=== PATIENT | male | born 1975 | race Caucasian/White ===

== ENCOUNTER 2018-05-15 14:03 | Inpatient (IN) ==
[2018-05-15 14:44] LABS: Basophils # 0.1 K/mcL (0.0-0.2); Basophils % 0.8 %; Eosinophils # 0.3 K/mcL (0.0-0.6); Hematocrit 46.5 % (37.5-50.1); Hemoglobin 15.8 g/dL (12.9-16.9); Immature Granulocytes % 1.4 % (0-4); Lymphocytes # 1.8 K/mcL (0.6-4.6); Lymphocytes % 14.2 %; Mean Corpuscular Hemoglobin 29.4 pg (28.0-33.3); Mean Corpuscular Volume 86.6 fL (83.0-100.0); Mean Platelet Volume 9.9 fL (9.4-12.4); Monocytes % 7.8 %; Neutrophils # 9.6 K/mcL (1.6-8.9); Platelet Count 266 K/mcL (140-400); Red Blood Count 5.37 M/mcL (4.19-5.50); Red Cell Distribution Width 13.5 % (11.5-14.5); Segmented Neutrophils % 73.8 %
[2018-05-15 15:02] LABS: Alanine Aminotransferase 30 Units/L (7-52); Albumin 4.5 g/dL (3.5-5.7); Albumin/Globulin Ratio 1.8 (1.1-2.2); Alkaline Phosphatase 83 Units/L (34-104); Aspartate Amino Transferase 21 Units/L (13-39); BUN/Creatinine Ratio 15 (6-26); Bilirubin,Total 0.4 mg/dL (0.3-1.0); Blood Urea Nitrogen 14 mg/dL (6-20); Calcium 9.5 mg/dL (8.6-10.3); Carbon Dioxide 24 mEq/L (23-29); Chloride 109 mEq/L (98-107); Globulin 2.5 g/dL (2.4-3.5); Glucose 93 mg/dL (70-105); Magnesium 2.5 mg/dL (1.6-2.6); Osmolality,Calculated 292 (280-300); Potassium 4.8 mEq/L (3.5-5.1); Sodium 141 mEq/L (136-145); Troponin I < 0.03 ng/mL (< 0.04); eGFR For Non-African Americans > 60 (> 60)
--- NOTE | 2018-05-15 15:03 | Emergency Department Note ---
Disposition Clinical Impression: Altered mental status Disposition: Admitted As Inpatient Condition: Fair General Adult HPI - General Chief complaint: ED Altered Mental Status Stated complaint: AMS Time Seen by Provider: 05/15/18 14:14 Nursing Notes Reviewed: Yes Vital Signs Reviewed: Yes - History of Present Illness Pain Scale: 0 - Related Data Home Medications Medication Instructions Recorded Confirmed RX: clonazePAM [Klonopin] 1 mg PO DAILY 06/07/16 05/15/18 Citalopram [CeleXA] 20 mg PO DAILY 05/15/18 05/15/18 Dextroamphetamine/Amphetamine 10 mg PO BID 05/15/18 05/15/18 [Adderall 10 mg Tablet] Imipramine HCl [Tofranil] 75 mg PO HS 05/15/18 05/15/18 Perphenazine 4 mg PO HS 05/15/18 05/15/18 Pregabalin [Lyrica] 300 mg PO BID 05/15/18 05/15/18 RX: [place] Carbonate 300 mg PO TID 05/15/18 05/15/18 Allergies Allergy/AdvReac Type Severity Reaction Status Date / Time Penicillins Allergy See Verified 05/05/18 13:22 Comments Past Medical History - Past Medical History Medical history: Reports: TIA, other Surgical history: Reports: orthopedic, other Psychiatric history: Reports: anxiety, ADHD, depression - Social History Smoking Status: Current every day smoker Smokeless Tobacco Status: No Alcohol use: Reports: none Drug use: Reports: none Physical Exam - General General appearance: alert, appears intoxicated Course Vital Signs Temperature 97.5 F L 05/15/18 14:12 Pulse Rate 85 05/15/18 14:12 Respiratory Rate 12 05/15/18 14:12 Blood Pressure 146/90 05/15/18 14:12 O2 Sat by Pulse Oximetry 96 05/15/18 14:12 Temperature 97.5 F L 05/15/18 14:12 Pulse Rate 81 05/15/18 15:39 Respiratory Rate 10 05/15/18 15:39 Blood Pressure 152/99 05/15/18 15:39 O2 Sat by Pulse Oximetry 97 05/15/18 15:39 Oxygen Delivery Oxygen Delivery Room Air Medical Decision Making - [facility] Narrative Medical decision making narrative: Head CT 05/15/18 14:26 IMPRESSION: No acute intracranial abnormality. D/ / Edgardo Steele MD / Edgardo Steele MD Interpreting Provider: Edgardo Steele MD Chest X-Ray 05/15/18 14:28 IMPRESSION: No evidence for acute cardiopulmonary process. D/ / Edgardo Steele MD / Edgardo Steele MD Interpreting Provider: Edgardo Steele MD 1527 hrs.: Labs look good. We will give him 1 small dose of Narcan to see if that changes anything. 1600 hrs.: Patient's drug screen is only positive for cocaine which does not fit the picture he has today. The question is whether this could be a synthetic opiate along with this but he did not respond to Narcan. Rented talk to the about bringing him into the hospital since he is still not waking up completely. She says it would not surprise her if he tried any drug of abuse. She says been a while since he is to start Percocet but she says that she thought even clean but she said with his friends when surprise her if he was doing drugs again. - Lab Data Result diagrams: 05/15/18 14:24 05/15/18 14:24 Lab Results 05/15/18 05/15/18 05/15/18 Range/Units 14:17 14:24 14:24 WBC 13.0 H (4.3-11.1) K/mcL RBC 5.37 (4.19-5.50) M/mcL Hgb 15.8 (12.9-16.9) g/dL Hct 46.5 (37.5-50.1) % MCV 86.6 (83.0-100.0) fL MCH 29.4 (28.0-33.3) pg MCHC 34.0 (31.6-35.5) g/dL RDW 13.5 (11.5-14.5) % Plt Count 266 (140-400) K/mcL MPV 9.9 (9.4-12.4) fL Immature Gran % 1.4 (0-4) % Seg Neutrophils % 73.8 % Lymphocytes % 14.2 % Monocytes % 7.8 % Eosinophils % 2.0 % Basophils % 0.8 % Neutrophils # 9.6 H (1.6-8.9) K/mcL Lymphocytes # 1.8 (0.6-4.6) K/mcL Monocytes # 1.0 (0.0-1.3) K/mcL Eosinophils # 0.3 (0.0-0.6) K/mcL Basophils # 0.1 (0.0-0.2) K/mcL Sodium 141 (136-145) mEq/L Potassium 4.8 (3.5-5.1) mEq/L Chloride 109 H (98-107) mEq/L Carbon Dioxide 24 (23-29) mEq/L BUN 14 (6-20) mg/dL Creatinine 0.96 (0.70-1.30) mg/dL Est GFR ( Amer) > 60 (> 60) Est GFR (Non-Af Amer) > 60 (> 60) BUN/Creatinine Ratio 15 (6-26) Glucose 93 (70-105) mg/dL POC Glucose 89 (70-99) mg/dL Calculated Osmolality 292 (280-300) Calcium 9.5 (8.6-10.3) mg/dL Magnesium 2.5 (1.6-2.6) mg/dL Total Bilirubin 0.4 (0.3-1.0) mg/dL AST 21 (13-39) Units/L ALT 30 (7-52) Units/L Alkaline Phosphatase 83 (34-104) Units/L Troponin I < 0.03 (< 0.04) ng/mL Serum Total Protein 7.0 (6.4-8.9) g/dL Albumin 4.5 (3.5-5.7) g/dL Globulin 2.5 (2.4-3.5) g/dL Albumin/Globulin Ratio 1.8 (1.1-2.2) Urine Color (Yellow) Urine Clarity (Clear) Urine pH (5.0-8.0) pH Units Ur Specific [place] (1.010-1.025) Urine Protein (Neg-Trace) mg/dL Urine Glucose (UA) (Normal) mg/dL Urine Ketones (Negative) mg/dL Urine Blood (Negative) Urine Nitrite (Negative) Urine Bilirubin (Negative) Urine Urobilinogen (Normal) mg/dL Ur Leukocyte Esterase (Negative) Ur Culture Indicated? (NO) Urine Opiates Screen (Atiknx=673) ng/mL Ur Barbiturates Screen (Miduzg=874) ng/mL Ur Phencyclidine Scrn (Cutoff=25) ng/mL Ur Amphetamines Screen (Mfnzmg=1781) ng/mL U Benzodiazepines Scrn (Fvvbtl=963) ng/mL Urine Cocaine Screen (Cutoff= 300) ng/mL U Marijuana (THC) Screen (Cutoff = 50) ng/mL Ur Drug Screen Interp Ethyl Alcohol < 10 (Less than 10) mg/dL 05/15/18 05/15/18 Range/Units 15:19 15:22 WBC (4.3-11.1) K/mcL RBC (4.19-5.50) M/mcL Hgb (12.9-16.9) g/dL Hct (37.5-50.1) % MCV (83.0-100.0) fL MCH (28.0-33.3) pg MCHC (31.6-35.5) g/dL RDW (11.5-14.5) % Plt Count (140-400) K/mcL MPV (9.4-12.4) fL Immature Gran % (0-4) % Seg Neutrophils % % Lymphocytes % % Monocytes % % Eosinophils % % Basophils % % Neutrophils # (1.6-8.9) K/mcL Lymphocytes # (0.6-4.6) K/mcL Monocytes # (0.0-1.3) K/mcL Eosinophils # (0.0-0.6) K/mcL Basophils # (0.0-0.2) K/mcL Sodium (136-145) mEq/L Potassium (3.5-5.1) mEq/L Chloride (98-107) mEq/L Carbon Dioxide (23-29) mEq/L BUN (6-20) mg/dL Creatinine (0.70-1.30) mg/dL Est GFR ( Amer) (> 60) Est GFR (Non-Af Amer) (> 60) BUN/Creatinine Ratio (6-26) Glucose (70-105) mg/dL POC Glucose (70-99) mg/dL Calculated Osmolality (280-300) Calcium (8.6-10.3) mg/dL Magnesium (1.6-2.6) mg/dL Total Bilirubin (0.3-1.0) mg/dL AST (13-39) Units/L ALT (7-52) Units/L Alkaline Phosphatase (34-104) Units/L Troponin I (< 0.04) ng/mL Serum Total Protein (6.4-8.9) g/dL Albumin (3.5-5.7) g/dL Globulin (2.4-3.5) g/dL Albumin/Globulin Ratio (1.1-2.2) Urine Color Yellow (Yellow) Urine Clarity Clear (Clear) Urine pH 5.0 (5.0-8.0) pH Units Ur Specific [place] 1.015 (1.010-1.025) Urine Protein Negative (Neg-Trace) mg/dL Urine Glucose (UA) Normal (Normal) mg/dL Urine Ketones Negative (Negative) mg/dL Urine Blood Negative (Negative) Urine Nitrite Negative (Negative) Urine Bilirubin Negative (Negative) Urine Urobilinogen Normal (Normal) mg/dL Ur Leukocyte Esterase Negative (Negative) Ur Culture Indicated? NO (NO) Urine Opiates Screen Negative (Yblvce=071) ng/mL Ur Barbiturates Screen Negative (Ekmfzk=556) ng/mL Ur Phencyclidine Scrn Negative (Cutoff=25) ng/mL Ur Amphetamines Screen Negative (Utksal=8549) ng/mL U Benzodiazepines Scrn Negative (Qctigl=706) ng/mL Urine Cocaine Screen Positive H (Cutoff= 300) ng/mL U Marijuana (THC) Screen Negative (Cutoff = 50) ng/mL Ur Drug Screen Interp See Below Ethyl Alcohol (Less than 10) mg/dL Attestation Statement - Attestation Attestation: This documentation is done with the assistance of Dragon dictation. Despite efforts made to ensure accuracy, there may be inaccuracies in finishing department supervisor or spelling and typographical errors. I examined this patient and my medical decision-making was reviewed with the Resident Physician. I agree with the documented findings, disposition and treatment plan as described except to the extent set forth below. Patient seen and evaluated today by Dr. Jain and myself, I agree with his evaluation management plan supervise care the patient's stay. Patient has a history of IV drug abuse went to work disappeared for a while came back was altered so they came in here to be seen. He says he took something but does not know what it is. He denies any fevers or chills he is not alert to time or placein the hospital. His but other that does not. He has been uncooperative here but is not febrile not toxic. Renagel workup on him and most likely will need admission.
[2018-05-15] MEDS ORDERED: Naloxone 0.4 MG/ML INJ IVP STA ×2 (15:27→20:02)
[2018-05-15 15:28] LABS: Bilirubin,Urine Negative (Negative); Blood,Urine Negative (Negative); Clarity,Urine Clear (Clear); Color,Urine Yellow (Yellow); Glucose,Urine (UA) Normal (Normal); Ketones,Urine Negative (Negative); Leukocyte Esterase,Urine Negative (Negative); Nitrite,Urine Negative (Negative); Protein,Urine Negative (Neg-Trace); Specific Gravity,Urine 1.015 (1.010-1.025); Urobilinogen,Urine Normal (Normal)
--- NOTE | 2018-05-15 15:31 | Emergency Department Note ---
Disposition Clinical Impression: Altered mental status Qualifiers: Altered mental status type: somnolence Qualified Code(s): R40.0 - Somnolence Disposition: Admitted As Inpatient Condition: Fair Referrals: Mary Ho MD [Primary Care Provider] - Forms: ED Satisfaction Letter, Work/School Release Time of Disposition: 17:08 Altered Mental Status HPI - General Chief Complaint: ED Altered Mental Status Stated Complaint: AMS Time Seen by Provider: 05/15/18 14:14 Source: family Mode of arrival: wheelchair Limitations: altered mental status Nursing Notes Reviewed: Yes Vital Signs Reviewed: Yes - History of Present Illness HPI Narrative: 42-year-old male presents to the emergency department for altered mental status. Patient does have history of chronic back pain does have a baclofen pump said that he was normal today he went over to a friend's house at work who does have history of possible drug use and then came back as he was normally when said on the couch and since then he has been talking out of his mind where he is saying that he is going to hell and he is going to . He did not admit to taking anything when I asked him if he took any meds he said yes I asked him what he said nothing. He has abused Percocets in the past that was approximately 3-4 years ago he has not done any other illicit drug use according to . He is not having any other pain or further get further heart difficult to get further history from the patient at this time according to there is been no other preceding illnesses otherwise. He had his baclofen pump dose inc reased approximately one week ago there is been no problems since that change. - Related Data Home Medications Medication Instructions Recorded Confirmed clonazePAM [Klonopin] 1 mg PO BID 06/07/16 05/05/18 Citalopram [CeleXA] 20 mg PO DAILY 05/15/18 05/15/18 Dextroamphetamine/Amphetamine 10 mg PO BID 05/15/18 05/15/18 [Adderall 10 mg Tablet] Imipramine HCl [Tofranil] 75 mg PO HS 05/15/18 05/15/18 [place] Carbonate 300 mg PO TID 05/15/18 05/15/18 Perphenazine 4 mg PO HS 05/15/18 05/15/18 Pregabalin [Lyrica] 300 mg PO BID 05/15/18 05/15/18 Allergies Allergy/AdvReac Type Severity Reaction Status Date / Time Penicillins Allergy See Verified 05/05/18 13:22 Comments Limitations: ROS unobtainable due to patients medical condition Past Medical History - Past Medical History Attestation: Yes The following information was validated with the patient. Source: patient Medical history: Reports: TIA, other Surgical history: Reports: orthopedic, other Psychiatric history: Reports: anxiety, ADHD, depression - Social History Smoking Status: Current every day smoker Smokeless Tobacco Status: No Alcohol use: Reports: none Drug use: Reports: none Physical Exam - General Limitations: altered mental status General appearance: alert, appears intoxicated - Head Head exam: atraumatic, normocephalic, normal inspection - Eye Eye exam: Present: normal appearance, PERRL, EOMI, miosis - ENT ENT exam: normal exam, normal oropharynx, mucous membranes moist - Neck Neck exam: Present: normal inspection, full ROM, trachea midline - Chest Chest inspection: Present: normal inspection, symmetric chest wall rise - Respiratory Respiratory exam: Present: normal lung sounds bilaterally - Cardiovascular Cardiovascular exam: Present: regular rate, normal rhythm, normal heart sounds - Abdominal Exam Abdominal exam: Present: soft, Non-Tender, normal bowel sounds. Absent: tenderness, distention, guarding, rebound, rigidity - Back Exam Back exam: Present: normal inspection, full ROM. Absent: tenderness, CVA tenderness (R), CVA tenderness (L) - Neurological Exam Neurological exam: Present: alert, oriented X3 - Expanded Neurological Exam Patient oriented to: Present: person, place, time Speech: Present: fluid speech Cranial nerves: EOM function (II, III, IV, ): Normal, facial sensation (V): Normal, facial palsy (VII): Normal, spinal accessory function (XI): Normal, tongue deviation (XII): Normal Motor strength - LUE: 4/5 Motor strength - RUE: 4/5 Motor strength - LLE: 4/5 Motor strength - RLE: 4/5 Upper motor neuron exam: bhavin neglect: Absent bilaterally, pronator drift: Absent bilaterally Sensory exam upper extremity: light touch: Normal Sensory exam lower extremity: light touch: Normal Coma Scale Eye Opening: Spontaneous Coma Scale Motor Response: Obeys Commands Coma Scale Verbal Response: Oriented Coma Scale Total: 15 - Skin Skin exam: Present: warm, dry, intact, normal color Course Course Narrative: Patient altered this time I did do an NIH scale on him and H was 0 he was able answer all questions and follow commands when he was sternal rubs and able to wake up. We have basic labs including CBC, BMP as well as urine and urine drug screen. We will do chest x-ray, CT head. We will see how patient response to this. Disposition pending results. - Reevaluation(s) Reevaluation #1: Patient is still somnolent but is responsive to sternal rub. I will give patient 0.4 mg of Narcan to see how he responds. Time: 15:37 Reevaluation #2: Narcan did not make any changes to the patient's mental status. He is still protecting his airway is breathing at 12 respirations per minute has good waveform and still is good oxygen saturation he did cocaine came back positive s aid she does not know what that is from. After to speak with patient more she is wondering if this is the Phenibut HCL he is been taking said this happened approximately one year ago similar episode but she did not put together until now. This is a benzodiazepine derivative and could be causing similar symptoms but will not show up positive on drug screen. Patient will be admitted for further evaluation Time: 16:13 Vital Signs Temperature 97.5 F L 05/15/18 14:12 Pulse Rate 85 05/15/18 14:12 Respiratory Rate 12 05/15/18 14:12 Blood Pressure 146/90 05/15/18 14:12 O2 Sat by Pulse Oximetry 96 05/15/18 14:12 Temperature 97.5 F L 05/15/18 14:12 Pulse Rate 81 05/15/18 15:39 Respiratory Rate 10 05/15/18 15:39 Blood Pressure 152/99 05/15/18 15:39 O2 Sat by Pulse Oximetry 97 05/15/18 15:39 Oxygen Delivery Oxygen Delivery Room Air Altered Mental Status - MDM Narrative Medical decision making narrative: 42-year-old male presented to the [facility] department with altered mental status. When first checked him he had no focal neurological deficits on exam there was no stroke alert called they believe it is possibly was a drug ingestion. Urine drug screen was positive for cocaine but is not acting right cocaine at this time. He is not tachycardic not any chest pain. He is arousable after sternal rubbing his protecting his airway and vital signs otherwise are stable he is not any oxygen and oxygen saturations are with 96%. Labs all came back without within normal limits CT head was normal chest x-ray also was normal EKG had no acute findings. Most likely is due to an intoxication speaking with more she believes it is the Phenibut he is taking as this is a gap or receptor ask similar to baclofen as well as a benzo but is not positive for benzos. He could is be overdosing as patient does have a baclofen pump. I did recommend that he stops taking this that could be what is causing all this. Due to patient's continued somnolence and altered mental status does not for T and home's will admit to the hospitalist. I spoke with possible Dr. Recinos who agreed to admit the patient to their service. Patient is admitted in stable condition. Head CT 05/15/18 14:26 IMPRESSION: No acute intracranial abnormality. D/ / Edgardo Steele MD / Edgardo Steele MD Interpreting Provider: Edgardo Steele MD Chest X-Ray 05/15/18 14:28 IMPRESSION: No evidence for acute cardiopulmonary process. D/ / Edgardo Steele MD / Edgardo Steele MD Interpreting Provider: Edgardo Steele MD - Medical Records Medical records reviewed: Yes I reviewed the patient's medical records. - Lab Data Lab results reviewed: Yes I reviewed the patient's lab results. Result diagrams: 05/15/18 14:24 05/15/18 14:24 Lab Results 05/15/18 05/15/18 05/15/18 Range/Units 14:17 14:24 14:24 WBC 13.0 H (4.3-11.1) K/mcL RBC 5.37 (4.19-5.50) M/mcL Hgb 15.8 (12.9-16.9) g/dL Hct 46.5 (37.5-50.1) % MCV 86.6 (83.0-100.0) fL MCH 29.4 (28.0-33.3) pg MCHC 34.0 (31.6-35.5) g/dL RDW 13.5 (11.5-14.5) % Plt Count 266 (140-400) K/mcL MPV 9.9 (9.4-12.4) fL Immature Gran % 1.4 (0-4) % Seg Neutrophils % 73.8 % Lymphocytes % 14.2 % Monocytes % 7.8 % Eosinophils % 2.0 % Basophils % 0.8 % Neutrophils # 9.6 H (1.6-8.9) K/mcL Lymphocytes # 1.8 (0.6-4.6) K/mcL Monocytes # 1.0 (0.0-1.3) K/mcL Eosinophils # 0.3 (0.0-0.6) K/mcL Basophils # 0.1 (0.0-0.2) K/mcL Sodium 141 (136-145) mEq/L Potassium 4.8 (3.5-5.1) mEq/L Chloride 109 H (98-107) mEq/L Carbon Dioxide 24 (23-29) mEq/L BUN 14 (6-20) mg/dL Creatinine 0.96 (0.70-1.30) mg/dL Est GFR ( Amer) > 60 (> 60) Est GFR (Non-Af Amer) > 60 (> 60) BUN/Creatinine Ratio 15 (6-26) Glucose 93 (70-105) mg/dL POC Glucose 89 (70-99) mg/dL Calculated Osmolality 292 (280-300) Calcium 9.5 (8.6-10.3) mg/dL Magnesium 2.5 (1.6-2.6) mg/dL Total Bilirubin 0.4 (0.3-1.0) mg/dL AST 21 (13-39) Units/L ALT 30 (7-52) Units/L Alkaline Phosphatase 83 (34-104) Units/L Troponin I < 0.03 (< 0.04) ng/mL Serum Total Protein 7.0 (6.4-8.9) g/dL Albumin 4.5 (3.5-5.7) g/dL Globulin 2.5 (2.4-3.5) g/dL Albumin/Globulin Ratio 1.8 (1.1-2.2) Urine Color (Yellow) Urine Clarity (Clear) Urine pH (5.0-8.0) pH Units Ur Specific [place] (1.010-1.025) Urine Protein (Neg-Trace) mg/dL Urine Glucose (UA) (Normal) mg/dL Urine Ketones (Negative) mg/dL Urine Blood (Negative) Urine Nitrite (Negative) Urine Bilirubin (Negative) Urine Urobilinogen (Normal) mg/dL Ur Leukocyte Esterase (Negative) Ur Culture Indicated? (NO) Urine Opiates Screen (Wsahuv=893) ng/mL Ur Barbiturates Screen (Ngshxv=842) ng/mL Ur Phencyclidine Scrn (Cutoff=25) ng/mL Ur Amphetamines Screen (Wkntpr=0424) ng/mL U Benzodiazepines Scrn (Yzdksb=721) ng/mL Urine Cocaine Screen (Cutoff= 300) ng/mL U Marijuana (THC) Screen (Cutoff = 50) ng/mL Ur Drug Screen Interp Ethyl Alcohol < 10 (Less than 10) mg/dL 05/15/18 05/15/18 Range/Units 15:19 15:22 WBC (4.3-11.1) K/mcL RBC (4.19-5.50) M/mcL Hgb (12.9-16.9) g/dL Hct (37.5-50.1) % MCV (83.0-100.0) fL MCH (28.0-33.3) pg MCHC (31.6-35.5) g/dL RDW (11.5-14.5) % Plt Count (140-400) K/mcL MPV (9.4-12.4) fL Immature Gran % (0-4) % Seg Neutrophils % % Lymphocytes % % Monocytes % % Eosinophils % % Basophils % % Neutrophils # (1.6-8.9) K/mcL Lymphocytes # (0.6-4.6) K/mcL Monocytes # (0.0-1.3) K/mcL Eosinophils # (0.0-0.6) K/mcL Basophils # (0.0-0.2) K/mcL Sodium (136-145) mEq/L Potassium (3.5-5.1) mEq/L Chloride (98-107) mEq/L Carbon Dioxide (23-29) mEq/L BUN (6-20) mg/dL Creatinine (0.70-1.30) mg/dL Est GFR ( Amer) (> 60) Est GFR (Non-Af Amer) (> 60) BUN/Creatinine Ratio (6-26) Glucose (70-105) mg/dL POC Glucose (70-99) mg/dL Calculated Osmolality (280-300) Calcium (8.6-10.3) mg/dL Magnesium (1.6-2.6) mg/dL Total Bilirubin (0.3-1.0) mg/dL AST (13-39) Units/L ALT (7-52) Units/L Alkaline Phosphatase (34-104) Units/L Troponin I (< 0.04) ng/mL Serum Total Protein (6.4-8.9) g/dL Albumin (3.5-5.7) g/dL Globulin (2.4-3.5) g/dL Albumin/Globulin Ratio (1.1-2.2) Urine Color Yellow (Yellow) Urine Clarity Clear (Clear) Urine pH 5.0 (5.0-8.0) pH Units Ur Specific [place] 1.015 (1.010-1.025) Urine Protein Negative (Neg-Trace) mg/dL Urine Glucose (UA) Normal (Normal) mg/dL Urine Ketones Negative (Negative) mg/dL Urine Blood Negative (Negative) Urine Nitrite Negative (Negative) Urine Bilirubin Negative (Negative) Urine Urobilinogen Normal (Normal) mg/dL Ur Leukocyte Esterase Negative (Negative) Ur Culture Indicated? NO (NO) Urine Opiates Screen Negative (Hejvmt=031) ng/mL Ur Barbiturates Screen Negative (Hstzxs=614) ng/mL Ur Phencyclidine Scrn Negative (Cutoff=25) ng/mL Ur Amphetamines Screen Negative (Jukild=2190) ng/mL U Benzodiazepines Scrn Negative (Ormpsk=717) ng/mL Urine Cocaine Screen Positive H (Cutoff= 300) ng/mL U Marijuana (THC) Screen Negative (Cutoff = 50) ng/mL Ur Drug Screen Interp See Below Ethyl Alcohol (Less than 10) mg/dL - Radiology Data Radiology results reviewed: Yes I reviewed the patient's radiology results. - EKG Data EKG attestation: Yes I reviewed and interpreted this EKG. EKG results narrative: EKG done at 14 review by myself and the attending shows sinus rhythm rate of 82, IA able 164, QRS 92, QTC 437. No acute ST changes no acute T-wave changes no signs of ischemia. No hypertrophy, heart strain, heart block. No WPW/Brugada/HOCM. EKG unchanged when compared with old one done 02/18/17 TPA Checklist - LKW: 3-4.5 hrs Add. Warnings/Precautions Patient/family understanding: The patient/family members have been counseled and understood the risk, benefit, and alternatives of treatment.
[2018-05-15 15:56] LABS: Amphetamine Screen,Urine Negative ng/mL (Cutoff=1000); Barbiturate Screen,Urine Negative ng/mL (Cutoff=200); Benzodiazepines Screen,Urine Negative ng/mL (Cutoff=200); Cannabinoid Screen,Urine Negative ng/mL (Cutoff = 50); Cocaine Screen,Urine Positive ng/mL (Cutoff= 300); Opiate Screen,Urine Negative ng/mL (Cutoff=300); Phencyclidine Screen,Urine Negative ng/mL (Cutoff=25)
[2018-05-15 15:58] LABS: Ethanol < 10 mg/dL (Less than 10)
[2018-05-15] MEDS ORDERED: Naloxone 0.4 MG/ML INJ ONE (20:00)
[2018-05-15 20:24] LABS: ABG Base Excess 2 mEq/L (-2 to 3); ABG HCO3 27 mEq/L (21-27); ABG Oxygen Saturation 96 % (95-98); ABG PCO2 43 mmHg (35-45); ABG PO2 79 mmHg (85-104); ABG TCO2 28 mEq/L (20-26)
[2018-05-15] MEDS ORDERED: Naloxone 0.4 MG/ML INJ IVP PRN (20:58)
[2018-05-15] MEDS ORDERED: 0.9 % Sodium Chloride 1,000 ML IVC SCH (21:15)
--- NOTE | 2018-05-15 21:30 | Internal Med History&Physical ---
Date of Encounter: 05/15/18 Time of Encounter: 20:30 Internal Medicine - H&P: HPI Chief complaint: Altered mental status Admitted From: Home Plans for Post Hospital Care: Transfer Psych Facility History of present illness: The patient is a 42-year-old male. He has had long-standing history of multiple psychiatric disorders. He has been suffering from low back pain for several years; got baclofen pump inserted in November 2017. He has had a history of polysubstance abuse. We found him to be positive for cocaine in urine drug screen. I got this patient unresponsive. See notes from the emergency room physician about the events preceding that event. The patient takes multiple psychiatric medications. They include Klonopin, Celexa, Adderall, Tofranil, lithium carbonate, perphenazine and Lyrica. The patient takes sdto-eib-pvricaw Phenibut. It may be toxic for him. It may cause undesirable interactions with his psychiatric medications. PAST MEDICAL HX: He has had chronic low back pain. Baclofen pump was inserted in November last year. He has had multiple psychiatric problems including bipolar disorder he. PAST FAMILY HX: Not obtainable from the patient. PAST SOCIAL HX: See belowfrom his . REVIEW OF SYSTEMS: Not obtainable from the patient. PHYSICAL EXAM: The patient is unresponsive to verbal stimuli. Skin: Free of rash and discoloration. Eyes: Sclera is white. There is no discharge from eyes. ENMT: Oral/pharyngeal mucosa is normal in appearance. There is no discharge from nose or ears. Respiratory: Normal breath sounds with no crackles and wheezes bilaterally. His respiratory rate is about 10. His respiratory pattern is of Yrn-Tiwari. CV: Heart is regular with no gallop or murmur. GI: Abdomen is flat and soft with no palpable mass or visceromegaly. : There is no tenderness in patient's flanks bilaterally. Neuro exam: The patient is unresponsive to verbal stimuli. He seems to have good muscle tone in all 4 extremities. His pupils are somewhat narrow and rounded. They respond to light appropriately. ADDITIONAL DATA: CT of head shows normal findings. Chest x-ray does not show any acute cardiopulmonary process. CBC shows hemoglobin of 15.8 with WBC of 13.0 thousand and normal platelet count. His ABG shows pH of 7.40 with PCO2 of 43, PO2 of 79 and bicarb of 28. It was done on room area. BMP and hepatic panel are normal. Troponin is normal. Urine drug screen is positive for cocaine. Ethyl alcohol level is below 10. A/P: Altered mental status likely secondary to taking outr-eko-bnemqvx Phenibut. He may be taking some other drugs. He may have overdosed his psychiatric medications (including lithium). We will offer him BiPAP treatments. We will protect his airways the best possible way. He may need to be ventilated. Multiple psychiatric problems. Including bipolar disorder. We cannot rule out suicidal attempt for this patient. We will ask psychiatry, when he is medically stable. Past Med Surg Social Fam HX - Past Medical History Medical history: TIA, other Additional medical history: depression,adhd,rsd,lumbarSTENOSIS. FAILED BACK SYNDROME. 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 CHRONIC LOW BACK PAIN. SLEEP APNEA. TIA Psychiatric history: anxiety, ADHD, depression - Past Surgical History Surgical History: orthopedic, other Additional surgical history: pain pump in back - Social History Smoking Status: Current every day smoker Smokeless Tobacco Status: No Alcohol use: none Drug use: none - Family History Father Hx Family Endocrine Disorder: Yes Internal Medicine - H&P: Meds clonazePAM [Klonopin] 1 mg PO DAILY 06/07/16 [History] Citalopram [CeleXA] 20 mg PO DAILY 05/15/18 [History] Dextroamphetamine/Amphetamine [Adderall 10 mg Tablet] 10 mg PO BID 05/15/18 [History] Imipramine HCl [Tofranil] 75 mg PO HS 05/15/18 [History] [place] Carbonate 300 mg PO TID 05/15/18 [History] Perphenazine 4 mg PO HS 05/15/18 [History] Pregabalin [Lyrica] 300 mg PO BID 05/15/18 [History] Allergy/AdvReac Type Severity Reaction Status Date / Time Penicillins Allergy See Verified 05/05/18 13:22 Comments - Constitutional Vitals: Temp Pulse Resp BP Pulse Ox 97.9 F 80 11 126/93 95 05/15/18 19:04 05/15/18 19:04 05/15/18 19:04 05/15/18 19:04 05/15/18 19:04 General appearance: Present: A&O X 0, no acute distress Exam: xx Internal Med - H&P Results - Labs CBC & Chem 7: 05/15/18 14:24 05/15/18 14:24 Labs: Short CBC 05/15/18 Range/Units 14:24 WBC 13.0 H (4.3-11.1) K/mcL Hgb 15.8 (12.9-16.9) g/dL Hct 46.5 (37.5-50.1) % Plt Count 266 (140-400) K/mcL Neutrophils # 9.6 H (1.6-8.9) K/mcL BMP 05/15/18 14:24 Sodium 141 Potassium 4.8 Chloride 109 H Carbon Dioxide 24 BUN 14 Creatinine 0.96 Glucose 93 Calcium 9.5 Cardiac Enzymes 05/15/18 Range/Units 14:24 Troponin I < 0.03 (< 0.04) ng/mL Liver Function 05/15/18 Range/Units 14:24 Total Bilirubin 0.4 (0.3-1.0) mg/dL AST 21 (13-39) Units/L ALT 30 (7-52) Units/L Alkaline Phosphatase 83 (34-104) Units/L Albumin 4.5 (3.5-5.7) g/dL Urine 05/15/18 Range/Units 15:22 Urine Color Yellow (Yellow) Urine Clarity Clear (Clear) Urine pH 5.0 (5.0-8.0) pH Units Ur Specific [place] 1.015 (1.010-1.025) Urine Protein Negative (Neg-Trace) mg/dL Urine Glucose (UA) Normal (Normal) mg/dL - ABG Interpretation ABG results: 05/15/18 20:20 ABG pH 7.40 ABG pCO2 43 ABG pO2 79 L ABG HCO3 27 ABG Total CO2 28 H ABG O2 Saturation 96 ABG Base Excess 2 - Impressions ITS Impressions Head CT 05/15/18 14:26 IMPRESSION: No acute intracranial abnormality. D/ / Edgardo Steele MD / Edgardo Steele MD Interpreting Provider: Edgardo Steele MD Chest X-Ray 05/15/18 14:28 IMPRESSION: No evidence for acute cardiopulmonary process. D/ / Edgardo Steele MD / Edgardo Steele MD Interpreting Provider: Edgardo Steele MD Chest X-Ray 05/15/18 20:07 IMPRESSION: No acute process. D/ / Adrien Romero MD / Adrien Romero MD Interpreting Provider: Adrien Romero MD - Assessment and plan (1) Altered mental status Current Visit: Yes Status: Acute Qualifiers: Altered mental status type: unspecified Qualified Code(s): R41.82 - Altered mental status, unspecified (2) Drug overdose Current Visit: Yes Status: Acute Qualifiers: Encounter type: initial encounter Injury intent: undetermined intent Qualified Code(s): T50.904A - Poisoning by unspecified drugs, medicaments and biological substances, undetermined, initial encounter (3) Chronic low back pain Current Visit: Yes Status: Acute Qualifiers: Back pain laterality: unspecified Sciatica presence: unspecified whether sciatica present Qualified Code(s): M54.5 - Low back pain; G89.29 - Other chronic pain (4) Bipolar disorder Current Visit: Yes Status: Acute Qualifiers: Active/Remission status: in remission of unspecified degree Qualified Code(s): F31.70 - Bipolar disorder, currently in remission, most recent episode unspecified - Time Spent With Patient Total time spent is greater than 50% in coordination of care (as documented) at patient's floor/unit and/or counseling patient:
--- NOTE | 2018-05-15 22:44 | Event Note ---
Addendum entered and electronically signed by Cole Collins CNP 05/15/18 23:46: Alerted by pts. nurse at 22:40 that the pts. breathing had changed and was more erratic. Respirations still 7-8. Went to see pt. immediately who was still somnolent and was having erratic breaths and now having jerking muscle movements. RT called to place BiPAP immediately. Loera catheter inserted for immobility d/t trauma or sx and initial urine output was 1350. Loera was clamped at 700 ml to avoid bladder spasms and then residual emptied approx 45 minutes later. Pt. became agitated during Loera placement so 4-point soft restraints ordered. Seizure precautions ordered as well as extended Neurological assessments. Researched Phentibut HCL further online and found that Baclofen is the only recommended agent to assist w/withdrawal according to [facility]. Baclofen used primarily to address muscle spams/rigidity/clonus and is typically used with a tapering dose of Phentibut. After pt. placed on BiPAP, muscle rigidity improved. 0.9 fluids running @ 125 mls/hr. Discussed pt. w/Dr. Morgan who came to see the pt. Discussed the research found regarding Phentibut HCL withdrawal w/Dr. Morgan. Plan is to continue to monitor and will consider adding Baclofen PRN for pts. sx. Nurse instructed to inform me immediately of any changes in pts. condition/status. Original Note: Date of Encounter: 05/15/18 Time of Encounter: 19:56 Alerted by pts. nurse Concha Caba that the pt. was having low respirations of 8 to 9. Immediately went to see pt. who was laying in bed snoring. present. Informed pts. that tox screen was positive for cocaine. She stated that the pt. didn't use cocaine. She reported that the pt. uses/buys a substance online called Phenibut HCL 125. It is a white powder. Researched the substance online. It is an anxiolytic that is a derivative of Rudi that originated in [place] and has been abused in [place] for years. Pts. reported that the pt. was on Gabapentin previously and dose was decreased greatly. VS: 97.9F temp, HR 80, RR 10, BP 126/93, SpO2 95% on RA. Pt. was exhibiting apneic breathing on exam and had rhonchi present. Concern for possible aspiration d/t somnolence. Repeat 1V CXR ordered which showed no acute process. Narcan ordered which pt. did not respond to. I called Poison Control and spoke w/CONCHA Kenney regarding the situation. Poison Control not familiar w/substance so educated her on the source and use of the drug. Poison Control recommended protecting the pts. airway and supportive care which were already being done. NPO. Elevated HOB and continuous aspiration precautions. Stat ABG ordered which was WNL. RT alerted to have BiPAP available since reported that pt. had to be previously intubated d/t same situation previously. Discussed ideation of the pt. with his who stated she didn't feel he was trying to harm himself. I reminded the pts. that she was unaware of his cocaine use. 0.9 IV fluids started at 125 ml/hr. 1A consult ordered and confirmed d/t unknown intent/ideation of the pt. at the time of OD. Nurse instructed to monitor pt. very closely and notify me immediately of any adverse changes, changes in respiratory status/decline, or psychiatric issues.
[2018-05-15] MEDS: 0.9 % Sodium Chloride 1,000 ML IVC SCH (22:45)
[2018-05-16 05:01] LABS: ABG Base Excess 2 mEq/L (-2 to 3); ABG HCO3 28 mEq/L (21-27); ABG Oxygen Saturation 98 % (95-98); ABG PCO2 49 mmHg (35-45); ABG PH 7.36 pH Units (7.32-7.45); ABG PO2 103 mmHg (85-104); ABG TCO2 29 mEq/L (20-26); Blood Gas PEEP 6 cm H2O
[2018-05-16 05:56] LABS: Basophils # 0.1 K/mcL (0.0-0.2); Basophils % 0.8 %; Eosinophils # 0.3 K/mcL (0.0-0.6); Eosinophils % 2.6 %; Hematocrit 45.5 % (37.5-50.1); Hemoglobin 15.3 g/dL (12.9-16.9); Immature Granulocytes % 1.2 % (0-4); Lymphocytes # 2.2 K/mcL (0.6-4.6); Lymphocytes % 19.1 %; Mean Corpuscular HGB Conc 33.6 g/dL (31.6-35.5); Mean Corpuscular Hemoglobin 29.8 pg (28.0-33.3); Mean Corpuscular Volume 88.5 fL (83.0-100.0); Mean Platelet Volume 9.8 fL (9.4-12.4); Monocytes % 8.2 %; Neutrophils # 7.9 K/mcL (1.6-8.9); Platelet Count 268 K/mcL (140-400); Red Blood Count 5.14 M/mcL (4.19-5.50); Red Cell Distribution Width 13.9 % (11.5-14.5); Segmented Neutrophils % 68.1 %
[2018-05-16 06:18] LABS: BUN/Creatinine Ratio 13 (6-26); Blood Urea Nitrogen 13 mg/dL (6-20); Calcium 9.5 mg/dL (8.6-10.3); Carbon Dioxide 29 mEq/L (23-29); Chloride 110 mEq/L (98-107); Glucose 116 mg/dL (70-105); Osmolality,Calculated 297 (280-300); Potassium 4.7 mEq/L (3.5-5.1); Sodium 143 mEq/L (136-145); eGFR For Non-African Americans > 60 (> 60)
[2018-05-16] MEDS: 0.9 % Sodium Chloride 1,000 ML IVC SCH ×2 (06:49→14:14)
--- NOTE | 2018-05-16 08:41 | Internal Med Progress Note ---
<Seven Mahoney - Last Filed: 05/16/18 11:10> Hospitalist Progress Note - Encounter Date of Encounter: 05/16/18 Time of Encounter: 08:39 - Subjective Interval History: I spoke with the nurse who stated patient has improved in arousal and breathing, stating that he will now respond to verbal stimuli. I spoke with the patient who responded to my questions. I asked if he had taken any substances we did not know about. He said no. I asked if he was attempting to hurt himself. He said no. I asked if he took extra or less medication. He said know. When I asked location, year, president, his replies were unintelligible, 2007, and [place], respectively. I informed him that he is still very unstable and required additional monitoring. He became agitated, stating he was fine, and his speech became further unintelligible, as he strained to get out of his restraints. - Exam Vitals: Temp Pulse Resp BP Pulse Ox 98.5 F 79 13 125/83 92 05/16/18 06:51 05/16/18 06:51 05/16/18 06:51 05/16/18 06:51 05/16/18 06:51 Exam: Patient on BiPAP, resting comfortably NO acute distress, only becoming agitated with certain conversations Responds to some questions, some answers inappropriate, some speech unintelligible Pupils dilated, equal and reactive to light, EOMI Heart in regular rate and rhythm, no murmur or gallop Lungs clear to auscultation, no wheeze or rhonchi auscultated Abdomen obese, soft and non-tender, normal bowel sounds noted Moves all extremities, in 3 point restraints, no focal deficits noted Skin warm and diaphoretic - Assessment and Plan (1) Altered mental status Current Visit: Yes Status: Acute Assessment and Plan: Patient presented secondary to altered mental status Differential includes medications and metabolic encephalopathy Medications/drugs far more likely, labs/vitals/PMHx not supportive of metabolic encephalopathy Patient is on multiple prescribed medications for psychiatric illness and morphine pump for chronic low back pain He also takes Phenibut which is a MIRZA analogue available on the internet On presentation patient was unresponsive with low respiratory drive, indicative of depressant intoxication Poison control was called who recommended airway protection and supportive care Patient was started on BiPAP and supportive care Overnight his clinical condition improved and he was responding to verbal stimulus this morning He was breathing normally and came off BiPAP and was able to support his airway He answered some questions but many answers were inappropriate and some answers were unintelligible At this point I suspect overdose of unknown substance He is improving with supportive care Plan Continue supportive care, fluids CIWA protocol for agitation and to cover any withdrawal Once patient is oriented restraints can come off and diet can stop Will continue to monitor clinical and mental status for changes (2) Drug overdose Current Visit: Yes Status: Acute Assessment and Plan: Plan as seen above (3) Chronic low back pain Current Visit: Yes Status: Chronic Assessment and Plan: Patient is on morphine pump for chronic back pain No intervention at this time (4) Bipolar disorder Current Visit: Yes Status: Chronic Assessment and Plan: Chronic, will restart home meds once clinically stable (5) ADHD Current Visit: Yes Status: Chronic Assessment and Plan: Chronic, will restart home meds once clinically stable (6) Anxiety Current Visit: Yes Status: Chronic Assessment and Plan: Chronic, will restart home meds once clinically stable (7) Depression Current Visit: Yes Status: Chronic Assessment and Plan: Chronic, will restart home meds once clinically stable DVT Prophylaxis: subcutaneous heparin - Time Spent with Patient Total time spent is greater than 50% in coordination of care (as documented) at patient's floor/unit and/or counseling patient: Internal Medicine: Result - Labs CBC & Chem 7: 05/16/18 04:49 05/16/18 04:49 Labs: Short CBC 05/15/18 05/16/18 Range/Units 14:24 04:49 WBC 13.0 H 11.7 H (4.3-11.1) K/mcL Hgb 15.8 15.3 (12.9-16.9) g/dL Hct 46.5 45.5 (37.5-50.1) % Plt Count 266 268 (140-400) K/mcL Neutrophils # 9.6 H 7.9 (1.6-8.9) K/mcL BMP 05/15/18 05/16/18 14:24 04:49 Sodium 141 143 Potassium 4.8 4.7 Chloride 109 H 110 H Carbon Dioxide 24 29 BUN 14 13 Creatinine 0.96 1.02 Glucose 93 116 H Calcium 9.5 9.5 Cardiac Enzymes 05/15/18 Range/Units 14:24 Troponin I < 0.03 (< 0.04) ng/mL Liver Function 05/15/18 Range/Units 14:24 Total Bilirubin 0.4 (0.3-1.0) mg/dL AST 21 (13-39) Units/L ALT 30 (7-52) Units/L Alkaline Phosphatase 83 (34-104) Units/L Albumin 4.5 (3.5-5.7) g/dL Urine 05/15/18 Range/Units 15:22 Urine Color Yellow (Yellow) Urine Clarity Clear (Clear) Urine pH 5.0 (5.0-8.0) pH Units Ur Specific [place] 1.015 (1.010-1.025) Urine Protein Negative (Neg-Trace) mg/dL Urine Glucose (UA) Normal (Normal) mg/dL - ABG Interpretation ABG results: ABG ABG pH 7.36 pH Units (7.32-7.45) 05/16/18 04:58 ABG pCO2 49 mmHg (35-45) H 05/16/18 04:58 ABG pO2 103 mmHg (85-104) 05/16/18 04:58 ABG O2 Saturation 98 % (95-98) 05/16/18 04:58 - Impressions Impressions Head CT 05/15/18 14:26 IMPRESSION: No acute intracranial abnormality. D/ / Edgardo Steele MD / Edgardo Steele MD Interpreting Provider: Edgardo Steele MD Chest X-Ray 05/15/18 14:28 IMPRESSION: No evidence for acute cardiopulmonary process. D/ / Edgardo Steele MD / Edgardo Steele MD Interpreting Provider: Edgardo Steele MD Chest X-Ray 05/15/18 20:07 IMPRESSION: No acute process. D/ / Adrien Romero MD / Adrien Romero MD Interpreting Provider: Adrien Romero MD Consult Discharge Plan - Plan Referrals: Mary Ho MD [Primary Care Provider] - <Jeff Mendenhall Yessenia - Last Filed: 05/16/18 17:49> Hospitalist Progress Note - Encounter Date of Encounter: 05/16/18 - Exam Vitals: Temp Pulse Resp BP Pulse Ox 98.0 F 76 16 107/67 97 05/16/18 16:46 05/16/18 16:46 05/16/18 16:46 05/16/18 16:46 05/16/18 16:46 - Assessment and Plan (1) Toxic encephalopathy Current Visit: Yes Status: Acute (2) Altered mental status Current Visit: Yes Status: Acute (3) Drug overdose Current Visit: Yes Status: Acute (4) Chronic low back pain Current Visit: Yes Status: Chronic (5) Bipolar disorder Current Visit: Yes Status: Chronic (6) ADHD Current Visit: Yes Status: Chronic (7) Anxiety Current Visit: Yes Status: Chronic (8) Depression Current Visit: Yes Status: Chronic (9) Tobacco abuse Current Visit: Yes Status: Chronic - Time Spent with Patient Total time spent is greater than 50% in coordination of care (as documented) at patient's floor/unit and/or counseling patient: Internal Medicine: Result - Labs CBC & Chem 7: 05/16/18 04:49 05/16/18 04:49 Labs: Short CBC 05/16/18 Range/Units 04:49 WBC 11.7 H (4.3-11.1) K/mcL Hgb 15.3 (12.9-16.9) g/dL Hct 45.5 (37.5-50.1) % Plt Count 268 (140-400) K/mcL Neutrophils # 7.9 (1.6-8.9) K/mcL BMP 05/16/18 04:49 Sodium 143 Potassium 4.7 Chloride 110 H Carbon Dioxide 29 BUN 13 Creatinine 1.02 Glucose 116 H Calcium 9.5 - ABG Interpretation ABG results: ABG ABG pH 7.36 pH Units (7.32-7.45) 05/16/18 04:58 ABG pCO2 49 mmHg (35-45) H 05/16/18 04:58 ABG pO2 103 mmHg (85-104) 05/16/18 04:58 ABG O2 Saturation 98 % (95-98) 05/16/18 04:58 - Impressions Impressions Chest X-Ray 05/15/18 20:07 IMPRESSION: No acute process. D/ / Adrien Romero MD / Adrien Romero MD Interpreting Provider: Adrien Romero MD - Attending Attestation I examined this patient and my medical decision-making was reviewed with the Resident Physician on 05/16/18. I agree with the documented findings, disposition and treatment plan as described except to the extent set forth below. Mr Bennett is currently admitted for acute encephalopathy most likely related to ingestion of OTC med. He remains moderate to high risk due to potential for worsening clinical status. Mr Bennett was very agitated this AM and required restraints. He also had somnolence and required bipap. At this time he is more alert and call. Appears to be approaching baseline. No CP or SOB. No abd pain. No GI issues. Exam alert Comfortable Mucus membranes dry Heart reg and not tachy No wheeze Abd soft and nontender Ext without edema Restraints on I/P 1. Acute toxic encephalopathy - most likely related to Phenibut (OTC med). Seems to be slowly improving. 2. Chronic back pain - has morphine pain pump 3. Bipolar 4. ADHD Further diagnoses and plan as above. <Seven Mahoney - Last Filed: 05/16/18 11:10> (1) Altered mental status Qualifiers: Altered mental status type: unspecified Qualified Code(s): R41.82 - Altered mental status, unspecified (2) Drug overdose Qualifiers: Encounter type: initial encounter Injury intent: undetermined intent Qualified Code(s): T50.904A - Poisoning by unspecified drugs, medicaments and biological substances, undetermined, initial encounter (3) Chronic low back pain Qualifiers: Back pain laterality: unspecified Sciatica presence: unspecified whether sciatica present Qualified Code(s): M54.5 - Low back pain; G89.29 - Other chronic pain (4) Bipolar disorder Qualifiers: Active/Remission status: in remission of unspecified degree Qualified Code(s): F31.70 - Bipolar disorder, currently in remission, most recent episode unspecified (5) ADHD Qualifiers: Attention deficit-hyperactivity disorder type: unspecified Qualified Code(s): F90.9 - Attention-deficit hyperactivity disorder, unspecified type (7) Depression Qualifiers: Depression Type: unspecified Qualified Code(s): F32.9 - Major depressive disorder, single episode, unspecified <Jeff Mendenhall - Last Filed: 05/16/18 17:49> (2) Altered mental status Qualifiers: Altered mental status type: unspecified Qualified Code(s): R41.82 - Altered mental status, unspecified (3) Drug overdose Qualifiers: Encounter type: subsequent encounter Injury intent: undetermined intent Qualified Code(s): T50.904D - Poisoning by unspecified drugs, medicaments and biological substances, undetermined, subsequent encounter (4) Chronic low back pain Qualifiers: Back pain laterality: unspecified Sciatica presence: unspecified whether sciatica present Qualified Code(s): M54.5 - Low back pain; G89.29 - Other chronic pain (5) Bipolar disorder Qualifiers: Active/Remission status: in remission of unspecified degree Qualified Code(s): F31.70 - Bipolar disorder, currently in remission, most recent episode unspecified (6) ADHD Qualifiers: Attention deficit-hyperactivity disorder type: unspecified Qualified Code(s): F90.9 - Attention-deficit hyperactivity disorder, unspecified type (8) Depression Qualifiers: Depression Type: unspecified Qualified Code(s): F32.9 - Major depressive disorder, single episode, unspecified
[2018-05-16] MEDS ORDERED: *HR* LORazepam 2 MG/ML VIAL IVP ONE (08:51)
[2018-05-16] MEDS ORDERED: *HR* LORazepam 2 MG/ML VIAL IVP PRN ×3 (11:30)
--- NOTE | 2018-05-16 17:27 | Electrocardiograph Report ---
[address] [address] Test Date: 2018-05-15 Pat Name: Finn Bennett Department: EXAM14 Room: 2N9 Gender: M Embedded Engineer: : 1975 Requested By: Anthony Enriquez Order Number: [id number] Reading MD: Naila Cifuentes Measurements Intervals [place] Rate: 82 P: 43 ME: 164 QRS: 87 QRSD: 92 T: 73 QT: 369 QTc: 437 Interpretive Statements Sinus rhythm Electronically Signed On 05-16-2018 17:26:04 EST by Naila Cifuentes
[2018-05-16] MEDS: *HR* Heparin 5,000 UNIT/ML VIAL SQ SCH (18:20)
[2018-05-17] MEDS: 0.9 % Sodium Chloride 1,000 ML IVC SCH (01:38)
[2018-05-17] MEDS: *HR* Heparin 5,000 UNIT/ML VIAL SQ SCH (05:15)
[2018-05-17 05:16] LABS: Basophils # 0.1 K/mcL (0.0-0.2); Basophils % 0.7 %; Eosinophils # 0.2 K/mcL (0.0-0.6); Eosinophils % 1.8 %; Hemoglobin 13.9 g/dL (12.9-16.9); Immature Granulocytes % 0.6 % (0-4); Lymphocytes % 19.4 %; Mean Corpuscular HGB Conc 33.9 g/dL (31.6-35.5); Mean Corpuscular Hemoglobin 29.3 pg (28.0-33.3); Mean Corpuscular Volume 86.3 fL (83.0-100.0); Monocytes # 0.7 K/mcL (0.0-1.3); Monocytes % 7.1 %; Neutrophils # 7.2 K/mcL (1.6-8.9); Platelet Count 246 K/mcL (140-400); Red Blood Count 4.75 M/mcL (4.19-5.50); Red Cell Distribution Width 13.3 % (11.5-14.5); Segmented Neutrophils % 70.4 %
[2018-05-17 05:47] LABS: BUN/Creatinine Ratio 22 (6-26); Blood Urea Nitrogen 16 mg/dL (6-20); Calcium 8.9 mg/dL (8.6-10.3); Carbon Dioxide 27 mEq/L (23-29); Chloride 109 mEq/L (98-107); Glucose 102 mg/dL (70-105); Osmolality,Calculated 295 (280-300); Potassium 3.5 mEq/L (3.5-5.1); Sodium 142 mEq/L (136-145); eGFR For Non-African Americans > 60 (> 60)
--- NOTE | 2018-05-17 10:52 | Discharge Summary ---
<Seven Mahoney - Last Filed: 05/17/18 14:56> - NOTES TO OUTPATIENT PROVIDER Notes to Outpatient Provider: Mr Bennett presented to the ED unresponsive with low respiratory drive. Based on labs, vitals, physical exam this was suspected to be secondary to intoxication. Patient is on multiple psychiatric medications as well as a supplement called phenibut, which is apparently an unregulated MIRZA analogue. Patient vehemently denied illicit drugs. With BiPAP and supportive care the patient clinically recovered and was considered stable for discharge. He was educated that his symptoms were likely related to supplement as other meds were unlikely. He was instructed to follow up with his psychiatrist this we ek or early next week to consolidate his prescriptions and make sure he was taking them correctly. He was also instructed to immediately return to the ED with any reccurence of symptoms. Date of Encounter: 05/17/18 Time of Encounter: 10:42 - Discharge Diagnosis (1) Altered mental status Priority: Primary Status: Resolved Assessment and Plan: Patient presented secondary to altered mental status Differential includes medications and metabolic encephalopathy Medications/drugs far more likely, labs/vitals/PMHx not supportive of metabolic encephalopathy Patient is on multiple prescribed medications for psychiatric illness and morphine pump for chronic low back pain He also takes Phenibut which is an unregulated MIRZA analogue available on the internet On presentation patient was unresponsive with low respiratory drive, indicative of depressant intoxication Poison control was called who recommended airway protection and supportive care Patient was started on BiPAP and supportive care Overnight his clinical condition improved and he was responding to verbal stimulus yesterday morning He was breathing normally and came off BiPAP and was able to support his airway He answered some questions but many answers were inappropriate and some answers were unintelligible He was continued on supportive care This morning the patient is hemodynamically stable and A&OX3 Etiology cannot be confirmed, but I believe patients symptoms may have been due to phenibut in combination with prescription meds Plan Patient stable for discharge Patient counselled on dangers of unregulated supplements, encouraged to stop phenibut Psych meds cannot be ruled out, follow up scheduled with psychiatrist to consolidate psych meds/doses Patient and instructed to return to ER for any recurrent symptoms Qualifiers: Altered mental status type: unspecified Qualified Code(s): R41.82 - Altered mental status, unspecified (2) Drug overdose Priority: Secondary Status: Resolved Assessment and Plan: Differential for intoxication includes drug overdose, including prescription meds and supplements Tox screen positive for cocaine, however false positives are a possibility and the patient adamantly denies cocaine use Patients presentation and clinical disposition also do not reflect cocaine use Qualifiers: Encounter type: subsequent encounter Injury intent: undetermined intent Qualified Code(s): T50.904D - Poisoning by unspecified drugs, medicaments and biological substances, undetermined, subsequent encounter (3) Chronic low back pain Priority: Secondary Status: Chronic Assessment and Plan: Patient is on morphine pump for chronic back pain This is unlikely to have caused his symptoms He has been on this pump chronically Patients presentation did not correlate and did not respond to naloxone Qualifiers: Back pain laterality: unspecified Sciatica presence: unspecified whether sciatica present Qualified Code(s): M54.5 - Low back pain; G89.29 - Other chronic pain (4) Bipolar disorder Priority: Secondary Status: Chronic Assessment and Plan: Chronic, will restart home meds at discharge, follow up scheduled with psychiat ry Qualifiers: Active/Remission status: in remission of unspecified degree Qualified Code(s): F31.70 - Bipolar disorder, currently in remission, most recent episode unspecified (5) ADHD Priority: Secondary Status: Chronic Assessment and Plan: Chronic, will restart home meds at discharge, follow up with psychiatry scheduled Qualifiers: Attention deficit-hyperactivity disorder type: unspecified Qualified Code(s): F90.9 - Attention-deficit hyperactivity disorder, unspecified type (6) Anxiety Priority: Secondary Status: Chronic Assessment and Plan: Chronic, will restart home meds at discharge, follow up with psychiatry scheduled (7) Depression Priority: Secondary Status: Chronic Assessment and Plan: Chronic, will restart home meds at discharge, follow up with psychiatry scheduled Patient denied SI, denies history of suicide attempt Qualifiers: Depression Type: unspecified Qualified Code(s): F32.9 - Major depressive disorder, single episode, unspecified Hospital course: Mr. Bennett is a 42 year old male With a past medical history of Bipolar disorder, chronic back pain, anxiety, depression, ADHD. He presented to the ED with decreased responsiveness and decreased respiratory drive. His stated that he takes multiple psych meds, an online supplement called Phenibut (a synthetic MIRZA analogue purchased online), has a morphine pain pump, and doesnt use any illicit drugs. CT head and CXR were non-contributory. Urine tox significant for cocaine which didn't match clinical picture and may have been false positive. Labs within normal limits. Vitals stable except for decreased respiratory rate. On physical exam patient was only responsive to painful stimuli and not oriented. Drug toxicity was the suspected cause of the patients altered mental status. Psych meds were considered, but less likely, and illicit drugs or Phenibut were considered. Poison control recommended supportive care, patient was placed on BiPAP and fluids and stabilized. The next morning the patient gained arousal but was still disoriented and confused and had to be restrained. As his orientation improved he denied illicit drugs, and Phenibut became the most likely etiology. After two days hospital course the patient completely stabilized clinically and mentally and was considered stable for discharge. He was educated on avoiding unregulated supplements and was scheduled with close follow up with psychiatrist for psych med consolidation. He was instructed to return to the ED with any recurrence of symptoms. Discharge discussed with: patient, family - Time Spent with Patient Total time spent providing and/or coordinating discharge services: - Discharge Medications Home Medications: RX: clonazePAM [Klonopin] 1 mg PO DAILY 06/07/16 [History] RX: Citalopram [CeleXA] 20 mg PO DAILY 05/15/18 [History] RX: Dextroamphetamine/Amphetamine [Adderall 10 mg Tablet] 10 mg PO BID 05/15/18 [History] RX: Imipramine HCl [Tofranil] 75 mg PO HS 05/15/18 [History] RX: [place] Carbonate 300 mg PO TID 05/15/18 [History] RX: Perphenazine 4 mg PO HS 05/15/18 [History] RX: Pregabalin [Lyrica] 300 mg PO BID 05/15/18 [History] RX: Morphine Sulfate/Pf [Morphine IntraThecdal Pump] 1 each IT AD 05/17/18 [History] Allergies/Adverse Reactions: Allergy/AdvReac Type Severity Reaction Status Date / Time Penicillins Allergy See Verified 05/05/18 13:22 Comments Date of admission: 05/15/18 23:35 Primary care physician: Mary Ho Discharging clinician: Seven Mahoney Anticipated date of discharge: 05/17/18 - Constitutional Vitals: Temp Pulse Resp BP Pulse Ox 97.9 F 68 16 103/70 93 05/17/18 04:00 05/17/18 07:10 05/17/18 07:10 05/17/18 07:10 05/17/18 07:10 General appearance: Present: no acute distress Exam: Patient in bed watching TV No acute distress, A&OX3, answers questions appropriately Normal affect PERRL, EOMI, MMM Heart in regular rate and rhythm, no murmur or gallop Lungs clear to auscultation, no wheeze or rhonchi auscultated Abdomen obese, soft and non-tender, normal bowel sounds noted Moves all extremities, no tremor, no focal deficits noted Skin warm and dry - Head Head exam: Present: atraumatic, normocephalic - Eye Eye exam: Present: PERRL, sclera anicteric Pupils: Present: PERRL - Psychiatric Psychiatric exam: Present: normal affect. Absent: suicidal ideation - Patient Status Disposition: Home, Self-Care Condition: Good Functional capacity at discharge: independent ambulation Overall status at discharge: patient is back to baseline - Discharge Instructions Instructions: Bipolar Disorder (DC), Depression (DC), Anxiety (DC), Cigarette Smoking and Your Health, Energy C[employer] (GEN) Follow Up With: Mary Ho MD [Primary Care Provider] - 05/29/18 10:15 am (Earliest available appointment.) - Diet and Activity Activity: resume usual activities as tolerated Diet: advance to your usual diet <CristinaGeorges Saul - Last Filed: 05/18/18 08:46> Date of Encounter: 05/18/18 - Discharge Diagnosis (1) Altered mental status Status: Resolved Qualifiers: Altered mental status type: unspecified Qualified Code(s): R41.82 - Altered mental status, unspecified (2) Drug overdose Status: Resolved Qualifiers: Encounter type: subsequent encounter Injury intent: undetermined intent Qualified Code(s): T50.904D - Poisoning by unspecified drugs, medicaments and biological substances, undetermined, subsequent encounter (3) Chronic low back pain Status: Chronic Qualifiers: Back pain laterality: unspecified Sciatica presence: unspecified whether sciatica present Qualified Code(s): M54.5 - Low back pain; G89.29 - Other chronic pain (4) Bipolar disorder Status: Chronic Qualifiers: Active/Remission status: in remission of unspecified degree Qualified C ode(s): F31.70 - Bipolar disorder, currently in remission, most recent episode unspecified (5) ADHD Status: Chronic Qualifiers: Attention deficit-hyperactivity disorder type: unspecified Qualified Code(s): F90.9 - Attention-deficit hyperactivity disorder, unspecified type (6) Anxiety Status: Chronic (7) Depression Status: Chronic Qualifiers: Depression Type: unspecified Qualified Code(s): F32.9 - Major depressive disorder, single episode, unspecified Hospital course: Mr. Bennett is a 42 year old male - Time Spent with Patient Total time spent providing and/or coordinating discharge services: Date of admission: 05/15/18 23:35 Primary care physician: Mary Ho - Constitutional Vitals: Temp Pulse Resp BP Pulse Ox 97.5 F L 79 16 126/78 96 05/17/18 15:29 05/17/18 15:29 05/17/18 15:29 05/17/18 15:29 05/17/18 15:29 - Attending Attestation I examined this patient and my medical decision-making was reviewed with the Resident Physician. I agree with the documented findings, disposition and treatment plan as described except to the extent set forth below.
[2018-05-17 15:33] VITALS: BP 126/78
== END 2018-05-17 17:11 | disposition home or self-care (01) | DRG 812 ==
LOC: 2SOUTHHOLD 14:03 → EMEROOARM 14:03 → 2SOUTHHOLD 17:58 → SUATTDRO 23:35 → 3BNU 05-16 15:07 → 2NENU 05-16 16:14
PROVIDERS: ADMIT Internal Medicine; ATTEND Internal Medicine

== ENCOUNTER 2018-12-15 20:25 | Inpatient (IN) ==
[~2018-12-15 20:25] MED LIST: *HR* Etomidate 20 MG/10 ML AMPUL IVP ONE; *HR* Rocuronium Bromide 100 MG/10 ML VIAL IVC ONE
--- NOTE | 2018-12-15 20:50 | Emergency Department Note ---
Overdose - [facility] Narrative Medical decision making narrative: EKG was obtained that showed sinus rhythm 50 beats a minute, no ST elevation or depression, WA and QT intervals within normal limits. Interpreted by myself. Patient was given Narcan here in the emergency room, the patient became somewhat aggressive after giving Narcan and was flexing and yelling here in the emergency room, the patient was placed on 4. restraints at that time secondary to his as well as staff safety. Patient at this point in time then became somnolent again, patient did have an ammonia capsule use, the patient only coughed and did not really arouse from that, also this point in time he was noted not to have a gag reflex. At this point in time and for airway protection and intubation was ordered. Please see the resident note for intubation procedure Patient this point in time will be limited to the ICU. Currently CT of the head is pending, the patient at this point in time has had significant secretions and there was questionable thought of possible aspiration. Case was discussed with the kettle girl who asked me to contact the hospitalist as well for further evaluation and care. Patient at this point in time will be admitted to the ICU in otherwise stable condition. CRITICAL CARE TIME OF 40 MINUTES PERFORMING THIS INDIVIDUAL OUTSIDE OF SEPARATELY BILLABLE PROCEDURES. THIS INCLUDES BEDSIDE EVALUATION, INTERPRETATION OF EKG AND LAB TESTS AND CONSULTATIONS. Final impression 1. Inadvertent drug overdose - Lab Data Result diagrams: 12/15/18 20:46 12/15/18 20:46 Lab Results 12/15/18 12/15/18 12/15/18 Range/Units 20:46 20:46 21:05 WBC 10.2 (4.3-11.1) K/mcL RBC 5.60 H (4.19-5.50) M/mcL Hgb 16.4 (12.9-16.9) g/dL Hct 49.8 (37.5-50.1) % MCV 88.9 (83.0-100.0) fL MCH 29.3 (28.0-33.3) pg MCHC 32.9 (31.6-35.5) g/dL RDW 14.7 H (11.5-14.5) % Plt Count 302 (140-400) K/mcL MPV 10.4 (9.4-12.4) fL Immature Gran % 0.9 (0-4) % Seg Neutrophils % 63.6 % Lymphocytes % 24.9 % Monocytes % 8.2 % Eosinophils % 1.6 % Basophils % 0.8 % Neutrophils # 6.5 (1.6-8.9) K/mcL Lymphocytes # 2.5 (0.6-4.6) K/mcL Monocytes # 0.8 (0.0-1.3) K/mcL Eosinophils # 0.2 (0.0-0.6) K/mcL Basophils # 0.1 (0.0-0.2) K/mcL Sodium 141 (136-145) mEq/L Potassium 4.2 (3.5-5.1) mEq/L Chloride 111 H (98-107) mEq/L Carbon Dioxide 24 (23-29) mEq/L BUN 12 (6-20) mg/dL Creatinine 0.92 (0.70-1.30) mg/dL Est GFR ( Amer) > 60 (> 60) Est GFR (Non-Af Amer) > 60 (> 60) BUN/Creatinine Ratio 13 (6-26) Glucose 98 (70-105) mg/dL Calculated Osmolality 292 (280-300) Calcium 9.3 (8.6-10.3) mg/dL Total Bilirubin 0.4 (0.3-1.0) mg/dL Direct Bilirubin 0.1 (0.0-0.2) mg/dL Indirect Bilirubin 0.3 (0.0-1.2) mg/dL AST 19 (13-39) Units/L ALT 17 (7-52) Units/L Alkaline Phosphatase 111 H (34-104) Units/L Serum Total Protein 7.4 (6.4-8.9) g/dL Albumin 4.7 (3.5-5.7) g/dL Globulin 2.7 (2.4-3.5) g/dL Albumin/Globulin Ratio 1.7 (1.1-2.2) Urine Color Yellow (Yellow) Urine Clarity Clear (Clear) Urine pH 5.0 (5.0-8.0) pH Units Ur Specific [place] 1.024 (1.010-1.025) Urine Protein Negative (Neg-Trace) mg/dL Urine Glucose (UA) Normal (Normal) mg/dL Urine Ketones Negative (Negative) mg/dL Urine Blood Negative (Negative) Urine Nitrite Negative (Negative) Urine Bilirubin Negative (Negative) Urine Urobilinogen Normal (Normal) mg/dL Ur Leukocyte Esterase Negative (Negative) Salicylates < 2.5 L (15.0-30.0) mg/dL Urine Opiates Screen (Cpxdds=600) ng/mL Ur Buprenorphine Scrn (Cutoff=5) ng/mL Acetaminophen < 10 L (10-20) mcg/mL Ur Barbiturates Screen (Scnbwv=250) ng/mL Ur Phencyclidine Scrn (Cutoff=25) ng/mL Ur Amphetamines Screen (Nzqdkl=5988) ng/mL U Benzodiazepines Scrn (Qvoemq=640) ng/mL Urine Cocaine Screen (Cutoff= 300) ng/mL U Marijuana (THC) Screen (Cutoff = 50) ng/mL Ur Drug Screen Interp Ethyl Alcohol < 10 (Less than 10) mg/dL 12/15/18 Range/Units 21:05 WBC (4.3-11.1) K/mcL RBC (4.19-5.50) M/mcL Hgb (12.9-16.9) g/dL Hct (37.5-50.1) % MCV (83.0-100.0) fL MCH (28.0-33.3) pg MCHC (31.6-35.5) g/dL RDW (11.5-14.5) % Plt Count (140-400) K/mcL MPV (9.4-12.4) fL Immature Gran % (0-4) % Seg Neutrophils % % Lymphocytes % % Monocytes % % Eosinophils % % Basophils % % Neutrophils # (1.6-8.9) K/mcL Lymphocytes # (0.6-4.6) K/mcL Monocytes # (0.0-1.3) K/mcL Eosinophils # (0.0-0.6) K/mcL Basophils # (0.0-0.2) K/mcL Sodium (136-145) mEq/L Potassium (3.5-5.1) mEq/L Chloride (98-107) mEq/L Carbon Dioxide (23-29) mEq/L BUN (6-20) mg/dL Creatinine (0.70-1.30) mg/dL Est GFR ( Amer) (> 60) Est GFR (Non-Af Amer) (> 60) BUN/Creatinine Ratio (6-26) Glucose (70-105) mg/dL Calculated Osmolality (280-300) Calcium (8.6-10.3) mg/dL Total Bilirubin (0.3-1.0) mg/dL Direct Bilirubin (0.0-0.2) mg/dL Indirect Bilirubin (0.0-1.2) mg/dL AST (13-39) Units/L ALT (7-52) Units/L Alkaline Phosphatase (34-104) Units/L Serum Total Protein (6.4-8.9) g/dL Albumin (3.5-5.7) g/dL Globulin (2.4-3.5) g/dL Albumin/Globulin Ratio (1.1-2.2) Urine Color (Yellow) Urine Clarity (Clear) Urine pH (5.0-8.0) pH Units Ur Specific [place] (1.010-1.025) Urine Protein (Neg-Trace) mg/dL Urine Glucose (UA) (Normal) mg/dL Urine Ketones (Negative) mg/dL Urine Blood (Negative) Urine Nitrite (Negative) Urine Bilirubin (Negative) Urine Urobilinogen (Normal) mg/dL Ur Leukocyte Esterase (Negative) Salicylates (15.0-30.0) mg/dL Urine Opiates Screen Negative (Hsttje=198) ng/mL Ur Buprenorphine Scrn Negative (Cutoff=5) ng/mL Acetaminophen (10-20) mcg/mL Ur Barbiturates Screen Positive H (Xnxnli=017) ng/mL Ur Phencyclidine Scrn Negative (Cutoff=25) ng/mL Ur Amphetamines Screen Negative (Njsbor=6098) ng/mL U Benzodiazepines Scrn Positive H (Bzpqpt=086) ng/mL Urine Cocaine Screen Negative (Cutoff= 300) ng/mL U Marijuana (THC) Screen Negative (Cutoff = 50) ng/mL Ur Drug Screen Interp See Below Ethyl Alcohol (Less than 10) mg/dL Overdose HPI - General Stated Complaint: Possible OD Time Seen by Provider: 12/15/18 20:26 Source: EMS Limitations: altered mental status - History of Present Illness HPI Narrative: Patient is a 43-year-old male who presents to emergency room with apparent overdose of medication. The patient does have a morphine pump apparently also took Phenolbut. Patient really has not noticed at least one other time, the patient apparently has been intubated here in the emergency room for doing the same thing. The patient arrives unresponsive here in emergency room. The patient has sonorous respirations. The patient is breathing about 5 or 6 times a minute. Patient however is maintaining O2 saturation. History of present illness and review of systems is otherwise unable to be obtained at this time. - Related Data Home Medications Medication Instructions Recorded Confirmed clonazePAM [Klonopin] 1 mg PO DAILY 06/07/16 05/15/18 Citalopram [CeleXA] 20 mg PO DAILY 05/15/18 05/15/18 Dextroamphetamine/Amphetamine 10 mg PO BID 05/15/18 05/15/18 [Adderall 10 mg Tablet] Imipramine HCl [Tofranil] 75 mg PO HS 05/15/18 05/15/18 [place] Carbonate 300 mg PO TID 05/15/18 05/15/18 Perphenazine 4 mg PO HS 05/15/18 05/15/18 Pregabalin [Lyrica] 300 mg PO BID 05/15/18 05/15/18 Morphine Sulfate/Pf [Morphine 1 each IT AD 05/17/18 05/17/18 IntraThecdal Pump] Allergies Allergy/AdvReac Type Severity Reaction Status Date / Time Penicillins Allergy See Verified 05/05/18 13:22 Comments Limitations: ROS unobtainable due to patients medical condition Past Medical History - Past Medical History Medical history: Reports: TIA, other Surgical history: Reports: orthopedic, other Psychiatric history: Reports: anxiety, ADHD, depression - Social History Smoking Status: Current every day smoker Smokeless Tobacco Status: No Alcohol use: Reports: none Drug use: Reports: none Physical Exam IPHYSICAL EXAM Constitutional: Well developed, Well nourished, somnolent, Non-toxic appearance. HENT: Normocephalic, Atraumatic, Bilateral external ears normal, Oropharynx moist, No oral exudates, Nose normal. Neck- Normal range of motion, No tenderness, Supple. Eyes: PERRL, somewhat mitotic in appearance, EOMI, Conjunctiva normal,. Cardiovascular: Regular rate and rhythm without clicks, rubs, gallops or murmurs. Respiratory: Patient does have rhonchi bilaterally, no distress noted. No wheezing or crackles noted. GI: Soft, no apparent tenderness on exam, no evidence of guarding or peritoneal signs. Bowel sounds are active. Musculoskeletal: Good passive range of motion on exam in all major joints. No tenderness to palpation or major deformities noted. Integument: Warm, Dry, No erythema, No rash. No edema. Neurologic: Patient is obtunded, unable to respond to commands, fold and lateral examination is limited - General Limitations: altered mental status Course Vital Signs Temperature 96.9 F L 12/15/18 20:31 Pulse Rate 56 12/15/18 20:31 Respiratory Rate 8 12/15/18 20:31 Blood Pressure 104/64 12/15/18 20:31 O2 Sat by Pulse Oximetry 98 12/15/18 20:31 Temperature 96.9 F L 12/15/18 20:31 Pulse Rate 56 12/15/18 20:31 Respiratory Rate 8 12/15/18 20:31 Blood Pressure 104/64 12/15/18 20:31 O2 Sat by Pulse Oximetry 98 12/15/18 20:31 Oxygen Delivery Oxygen Delivery Room Air Critical Care Time Critical Care Time: Yes Total Critical Care Time: 35 Attestation: See note Disposition Clinical Impression: Drug overdose Disposition: Admitted As Inpatient Condition: Fair Referrals: Mary Ho MD [Primary Care Provider] - Forms: ED Satisfaction Letter Time of Disposition: 22:23
[2018-12-15 21:04] LABS: Basophils # 0.1 K/mcL (0.0-0.2); Basophils % 0.8 %; Eosinophils # 0.2 K/mcL (0.0-0.6); Eosinophils % 1.6 %; Hematocrit 49.8 % (37.5-50.1); Hemoglobin 16.4 g/dL (12.9-16.9); Immature Granulocytes % 0.9 % (0-4); Lymphocytes # 2.5 K/mcL (0.6-4.6); Lymphocytes % 24.9 %; Mean Corpuscular HGB Conc 32.9 g/dL (31.6-35.5); Mean Corpuscular Hemoglobin 29.3 pg (28.0-33.3); Mean Corpuscular Volume 88.9 fL (83.0-100.0); Mean Platelet Volume 10.4 fL (9.4-12.4); Monocytes # 0.8 K/mcL (0.0-1.3); Monocytes % 8.2 %; Neutrophils # 6.5 K/mcL (1.6-8.9); Platelet Count 302 K/mcL (140-400); Red Cell Distribution Width 14.7 % (11.5-14.5); Segmented Neutrophils % 63.6 %; White Blood Count 10.2 K/mcL (4.3-11.1)
[2018-12-15] MEDS ORDERED: Haloperidol Lactate 5 MG/ML VIAL IVP ONE (21:13)
[2018-12-15 21:19] LABS: Bilirubin,Urine Negative (Negative); Blood,Urine Negative (Negative); Clarity,Urine Clear (Clear); Color,Urine Yellow (Yellow); Glucose,Urine (UA) Normal (Normal); Ketones,Urine Negative (Negative); Leukocyte Esterase,Urine Negative (Negative); Nitrite,Urine Negative (Negative); Protein,Urine Negative (Neg-Trace); Specific Gravity,Urine 1.024 (1.010-1.025); Urobilinogen,Urine Normal (Normal)
[2018-12-15 21:25] LABS: Acetaminophen < 10 mcg/mL (10-20); Alanine Aminotransferase 17 Units/L (7-52); Albumin 4.7 g/dL (3.5-5.7); Albumin/Globulin Ratio 1.7 (1.1-2.2); Alkaline Phosphatase 111 Units/L (34-104); Aspartate Amino Transferase 19 Units/L (13-39); BUN/Creatinine Ratio 13 (6-26); Bilirubin,Direct 0.1 mg/dL (0.0-0.2); Bilirubin,Indirect 0.3 mg/dL (0.0-1.2); Bilirubin,Total 0.4 mg/dL (0.3-1.0); Blood Urea Nitrogen 12 mg/dL (6-20); Calcium 9.3 mg/dL (8.6-10.3); Carbon Dioxide 24 mEq/L (23-29); Chloride 111 mEq/L (98-107); Ethanol < 10 mg/dL (Less than 10); Globulin 2.7 g/dL (2.4-3.5); Glucose 98 mg/dL (70-105); Osmolality,Calculated 292 (280-300); Potassium 4.2 mEq/L (3.5-5.1); Salicylate < 2.5 mg/dL (15.0-30.0); Sodium 141 mEq/L (136-145); Total Protein 7.4 g/dL (6.4-8.9); eGFR For African Americans > 60 (> 60); eGFR For Non-African Americans > 60 (> 60)
[2018-12-15 21:25] LABS: Amphetamine Screen,Urine Negative ng/mL (Cutoff=1000); Barbiturate Screen,Urine Positive ng/mL (Cutoff=200); Benzodiazepines Screen,Urine Positive ng/mL (Cutoff=200); Cannabinoid Screen,Urine Negative ng/mL (Cutoff = 50); Cocaine Screen,Urine Negative ng/mL (Cutoff= 300); Opiate Screen,Urine Negative ng/mL (Cutoff=300); Phencyclidine Screen,Urine Negative ng/mL (Cutoff=25)
[2018-12-15] MEDS ORDERED: Ammonia Inhalant AMPUL ONE (21:25)
[2018-12-15] MEDS ORDERED: Dexmedetomidine HCl 400 MCG/100 ML MLS IVC ONE (21:33)
[2018-12-15] MEDS ORDERED: *HR* Etomidate 20 MG/10 ML AMPUL IVP ONE (21:46)
[2018-12-15] MEDS ORDERED: *HR* Rocuronium Bromide 50 MG/5 ML VIAL IVP ONE ×2 (21:46→23:18)
--- NOTE | 2018-12-15 21:59 | Emergency Department Note ---
Disposition Clinical Impression: Drug overdose Disposition: Admitted As Inpatient Referrals: Mary Ho MD [Non-Partnered Physician] - Forms: ED Satisfaction Letter Time of Disposition: 22:20 General Adult HPI - General Chief complaint: ED Overdose Stated complaint: Possible OD Time Seen by Provider: 12/15/18 20:26 Source: EMS Limitations: altered mental status - History of Present Illness HPI Narrative: This is just a procedure note. For full history and physical please refer to the documentation provided by Dr. Hart Pain Scale: 0 - Related Data Home Medications Medication Instructions Recorded Confirmed clonazePAM [Klonopin] 1 mg PO DAILY 06/07/16 05/15/18 Citalopram [CeleXA] 20 mg PO DAILY 05/15/18 05/15/18 Dextroamphetamine/Amphetamine 10 mg PO BID 05/15/18 05/15/18 [Adderall 10 mg Tablet] Imipramine HCl [Tofranil] 75 mg PO HS 05/15/18 05/15/18 [place] Carbonate 300 mg PO TID 05/15/18 05/15/18 Perphenazine 4 mg PO HS 05/15/18 05/15/18 Pregabalin [Lyrica] 300 mg PO BID 05/15/18 05/15/18 Morphine Sulfate/Pf [Morphine 1 each IT AD 05/17/18 05/17/18 IntraThecdal Pump] Allergies Allergy/AdvReac Type Severity Reaction Status Date / Time Penicillins Allergy See Verified 05/05/18 13:22 Comments Past Medical History - Past Medical History Medical history: Reports: TIA, other Surgical history: Reports: orthopedic, other Psychiatric history: Reports: anxiety, ADHD, depression - Social History Smoking Status: Current every day smoker Smokeless Tobacco Status: No Alcohol use: Reports: none Drug use: Reports: none Physical Exam - General Limitations: altered mental status Course Vital Signs Temperature 96.9 F L 12/15/18 20:31 Pulse Rate 56 12/15/18 20:31 Respiratory Rate 8 12/15/18 20:31 Blood Pressure 104/64 12/15/18 20:31 O2 Sat by Pulse Oximetry 98 12/15/18 20:31 Temperature 96.9 F L 12/15/18 20:31 Pulse Rate 56 12/15/18 20:31 Respiratory Rate 8 12/15/18 20:31 Blood Pressure 104/64 12/15/18 20:31 O2 Sat by Pulse Oximetry 98 12/15/18 20:31 Oxygen Delivery Oxygen Delivery Room Air Procedures - Intubation Time out performed: Yes sedative: Etomidate Mg Given: 20 paralytic: Rocuronium Mg Given: 100 Laryngoscope: fiber optic video scope ET Tube Size: 7.5 ET Tube Uncuffed: No Tube Secured Depth (cm): 24 Tube Secured Location: lips Tube Placement Confirmation: visualized tube passing through cords, equal breath sounds bilaterally, no breath sounds over epigastrium, confirmation by capnometry Patient Tolerated Procedure: well Intubation Complications: difficult intubation, hypoxia Medical Decision Making - Lab Data Result diagrams: 12/15/18 20:46 12/15/18 20:46 Lab Results 12/15/18 12/15/18 12/15/18 Range/Units 20:46 20:46 21:05 WBC 10.2 (4.3-11.1) K/mcL RBC 5.60 H (4.19-5.50) M/mcL Hgb 16.4 (12.9-16.9) g/dL Hct 49.8 (37.5-50.1) % MCV 88.9 (83.0-100.0) fL MCH 29.3 (28.0-33.3) pg MCHC 32.9 (31.6-35.5) g/dL RDW 14.7 H (11.5-14.5) % Plt Count 302 (140-400) K/mcL MPV 10.4 (9.4-12.4) fL Immature Gran % 0.9 (0-4) % Seg Neutrophils % 63.6 % Lymphocytes % 24.9 % Monocytes % 8.2 % Eosinophils % 1.6 % Basophils % 0.8 % Neutrophils # 6.5 (1.6-8.9) K/mcL Lymphocytes # 2.5 (0.6-4.6) K/mcL Monocytes # 0.8 (0.0-1.3) K/mcL Eosinophils # 0.2 (0.0-0.6) K/mcL Basophils # 0.1 (0.0-0.2) K/mcL Sodium 141 (136-145) mEq/L Potassium 4.2 (3.5-5.1) mEq/L Chloride 111 H (98-107) mEq/L Carbon Dioxide 24 (23-29) mEq/L BUN 12 (6-20) mg/dL Creatinine 0.92 (0.70-1.30) mg/dL Est GFR ( Amer) > 60 (> 60) Est GFR (Non-Af Amer) > 60 (> 60) BUN/Creatinine Ratio 13 (6-26) Glucose 98 (70-105) mg/dL Calculated Osmolality 292 (280-300) Calcium 9.3 (8.6-10.3) mg/dL Total Bilirubin 0.4 (0.3-1.0) mg/dL Direct Bilirubin 0.1 (0.0-0.2) mg/dL Indirect Bilirubin 0.3 (0.0-1.2) mg/dL AST 19 (13-39) Units/L ALT 17 (7-52) Units/L Alkaline Phosphatase 111 H (34-104) Units/L Serum Total Protein 7.4 (6.4-8.9) g/dL Albumin 4.7 (3.5-5.7) g/dL Globulin 2.7 (2.4-3.5) g/dL Albumin/Globulin Ratio 1.7 (1.1-2.2) Urine Color Yellow (Yellow) Urine Clarity Clear (Clear) Urine pH 5.0 (5.0-8.0) pH Units Ur Specific [place] 1.024 (1.010-1.025) Urine Protein Negative (Neg-Trace) mg/dL Urine Glucose (UA) Normal (Normal) mg/dL Urine Ketones Negative (Negative) mg/dL Urine Blood Negative (Negative) Urine Nitrite Negative (Negative) Urine Bilirubin Negative (Negative) Urine Urobilinogen Normal (Normal) mg/dL Ur Leukocyte Esterase Negative (Negative) Salicylates < 2.5 L (15.0-30.0) mg/dL Urine Opiates Screen (Amzmkd=423) ng/mL Ur Buprenorphine Scrn (Cutoff=5) ng/mL Acetaminophen < 10 L (10-20) mcg/mL Ur Barbiturates Screen (Znjpfn=926) ng/mL Ur Phencyclidine Scrn (Cutoff=25) ng/mL Ur Amphetamines Screen (Ptcrpr=8221) ng/mL U Benzodiazepines Scrn (Hyepqy=412) ng/mL Urine Cocaine Screen (Cutoff= 300) ng/mL U Marijuana (THC) Screen (Cutoff = 50) ng/mL Ur Drug Screen Interp Ethyl Alcohol < 10 (Less than 10) mg/dL 12/15/18 Range/Units 21:05 WBC (4.3-11.1) K/mcL RBC (4.19-5.50) M/mcL Hgb (12.9-16.9) g/dL Hct (37.5-50.1) % MCV (83.0-100.0) fL MCH (28.0-33.3) pg MCHC (31.6-35.5) g/dL RDW (11.5-14.5) % Plt Count (140-400) K/mcL MPV (9.4-12.4) fL Immature Gran % (0-4) % Seg Neutrophils % % Lymphocytes % % Monocytes % % Eosinophils % % Basophils % % Neutrophils # (1.6-8.9) K/mcL Lymphocytes # (0.6-4.6) K/mcL Monocytes # (0.0-1.3) K/mcL Eosinophils # (0.0-0.6) K/mcL Basophils # (0.0-0.2) K/mcL Sodium (136-145) mEq/L Potassium (3.5-5.1) mEq/L Chloride (98-107) mEq/L Carbon Dioxide (23-29) mEq/L BUN (6-20) mg/dL Creatinine (0.70-1.30) mg/dL Est GFR ( Amer) (> 60) Est GFR (Non-Af Amer) (> 60) BUN/Creatinine Ratio (6-26) Glucose (70-105) mg/dL Calculated Osmolality (280-300) Calcium (8.6-10.3) mg/dL Total Bilirubin (0.3-1.0) mg/dL Direct Bilirubin (0.0-0.2) mg/dL Indirect Bilirubin (0.0-1.2) mg/dL AST (13-39) Units/L ALT (7-52) Units/L Alkaline Phosphatase (34-104) Units/L Serum Total Protein (6.4-8.9) g/dL Albumin (3.5-5.7) g/dL Globulin (2.4-3.5) g/dL Albumin/Globulin Ratio (1.1-2.2) Urine Color (Yellow) Urine Clarity (Clear) Urine pH (5.0-8.0) pH Units Ur Specific [place] (1.010-1.025) Urine Protein (Neg-Trace) mg/dL Urine Glucose (UA) (Normal) mg/dL Urine Ketones (Negative) mg/dL Urine Blood (Negative) Urine Nitrite (Negative) Urine Bilirubin (Negative) Urine Urobilinogen (Normal) mg/dL Ur Leukocyte Esterase (Negative) Salicylates (15.0-30.0) mg/dL Urine Opiates Screen Negative (Voeqyb=391) ng/mL Ur Buprenorphine Scrn Negative (Cutoff=5) ng/mL Acetaminophen (10-20) mcg/mL Ur Barbiturates Screen Positive H (Jpkxgc=007) ng/mL Ur Phencyclidine Scrn Negative (Cutoff=25) ng/mL Ur Amphetamines Screen Negative (Dqtyjr=0626) ng/mL U Benzodiazepines Scrn Positive H (Xqibgb=256) ng/mL Urine Cocaine Screen Negative (Cutoff= 300) ng/mL U Marijuana (THC) Screen Negative (Cutoff = 50) ng/mL Ur Drug Screen Interp See Below Ethyl Alcohol (Less than 10) mg/dL Attestation Statement - Attestation Attestation: I was present injury of his supervising entire procedure here at the bedside with the resident and the medical student performing the procedure. Patient did have an episode of desaturation that lasted less than 1 minute and was quickly resolved with bag valve mask as well as the intubation. Patient did not have any evidence of bradycardia.
[2018-12-15] MEDS: Dexmedetomidine HCl 400 MCG/100 ML MLS IVC SCH (22:06)
--- NOTE | 2018-12-15 22:32 | Emergency Department Note ---
Disposition Clinical Impression: Drug overdose Disposition: Admitted As Inpatient Condition: Fair Referrals: Mary Ho MD [Primary Care Provider] - Forms: ED Satisfaction Letter Time of Disposition: 22:32 General Adult HPI - General Chief complaint: ED Overdose Stated complaint: Possible OD Time Seen by Provider: 12/15/18 20:26 Source: EMS Limitations: altered mental status - History of Present Illness HPI Narrative: This is an addendum Pain Scale: 0 - Related Data Home Medications Medication Instructions Recorded Confirmed clonazePAM [Klonopin] 1 mg PO DAILY 06/07/16 05/15/18 Citalopram [CeleXA] 20 mg PO DAILY 05/15/18 05/15/18 Dextroamphetamine/Amphetamine 10 mg PO BID 05/15/18 05/15/18 [Adderall 10 mg Tablet] Imipramine HCl [Tofranil] 75 mg PO HS 05/15/18 05/15/18 [place] Carbonate 300 mg PO TID 05/15/18 05/15/18 Perphenazine 4 mg PO HS 05/15/18 05/15/18 Pregabalin [Lyrica] 300 mg PO BID 05/15/18 05/15/18 Morphine Sulfate/Pf [Morphine 1 each IT AD 05/17/18 05/17/18 IntraThecdal Pump] Allergies Allergy/AdvReac Type Severity Reaction Status Date / Time Penicillins Allergy See Verified 05/05/18 13:22 Comments All systems ED: reviewed and negative except as stated. Past Medical History - Past Medical History Medical history: Reports: TIA, other Surgical history: Reports: orthopedic, other Psychiatric history: Reports: anxiety, ADHD, depression - Social History Smoking Status: Current every day smoker Smokeless Tobacco Status: No Alcohol use: Reports: none Drug use: Reports: none Physical Exam Addendum - General Limitations: altered mental status Course Vital Signs Temperature 96.9 F L 12/15/18 20:31 Pulse Rate 56 12/15/18 20:31 Respiratory Rate 8 12/15/18 20:31 Blood Pressure 104/64 12/15/18 20:31 O2 Sat by Pulse Oximetry 98 12/15/18 20:31 Temperature 96.9 F L 12/15/18 20:31 Pulse Rate 56 12/15/18 20:31 Respiratory Rate 8 12/15/18 20:31 Blood Pressure 104/64 12/15/18 20:31 O2 Sat by Pulse Oximetry 98 12/15/18 20:31 Oxygen Delivery Oxygen Delivery Room Air Medical Decision Making - MDM Narrative Medical decision making narrative: Patient has had a chest x-ray that shows what appears be aspiration. Discussion with the hospitalist they will like to currently wait for antibiotic treatment, the patient fairly is allergic to penicillin. We will go ahead and start antibiotics upon arrival to the ICU. Case again has been discussed with the hospitalist as well as with the sanitation truck cleaner. Patient will be admitted in stable condition. Currently pending CT of the head. The patient will have CT of the head prior to admission to the ICU as long as stable will be admitted to the ICU. - Lab Data Result diagrams: 12/15/18 20:46 12/15/18 20:46 Lab Results 12/15/18 12/15/18 12/15/18 Range/Units 20:46 20:46 21:05 WBC 10.2 (4.3-11.1) K/mcL RBC 5.60 H (4.19-5.50) M/mcL Hgb 16.4 (12.9-16.9) g/dL Hct 49.8 (37.5-50.1) % MCV 88.9 (83.0-100.0) fL MCH 29.3 (28.0-33.3) pg MCHC 32.9 (31.6-35.5) g/dL RDW 14.7 H (11.5-14.5) % Plt Count 302 (140-400) K/mcL MPV 10.4 (9.4-12.4) fL Immature Gran % 0.9 (0-4) % Seg Neutrophils % 63.6 % Lymphocytes % 24.9 % Monocytes % 8.2 % Eosinophils % 1.6 % Basophils % 0.8 % Neutrophils # 6.5 (1.6-8.9) K/mcL Lymphocytes # 2.5 (0.6-4.6) K/mcL Monocytes # 0.8 (0.0-1.3) K/mcL Eosinophils # 0.2 (0.0-0.6) K/mcL Basophils # 0.1 (0.0-0.2) K/mcL Sodium 141 (136-145) mEq/L Potassium 4.2 (3.5-5.1) mEq/L Chloride 111 H (98-107) mEq/L Carbon Dioxide 24 (23-29) mEq/L BUN 12 (6-20) mg/dL Creatinine 0.92 (0.70-1.30) mg/dL Est GFR ( Amer) > 60 (> 60) Est GFR (Non-Af Amer) > 60 (> 60) BUN/Creatinine Ratio 13 (6-26) Glucose 98 (70-105) mg/dL Calculated Osmolality 292 (280-300) Calcium 9.3 (8.6-10.3) mg/dL Total Bilirubin 0.4 (0.3-1.0) mg/dL Direct Bilirubin 0.1 (0.0-0.2) mg/dL Indirect Bilirubin 0.3 (0.0-1.2) mg/dL AST 19 (13-39) Units/L ALT 17 (7-52) Units/L Alkaline Phosphatase 111 H (34-104) Units/L Serum Total Protein 7.4 (6.4-8.9) g/dL Albumin 4.7 (3.5-5.7) g/dL Globulin 2.7 (2.4-3.5) g/dL Albumin/Globulin Ratio 1.7 (1.1-2.2) Urine Color Yellow (Yellow) Urine Clarity Clear (Clear) Urine pH 5.0 (5.0-8.0) pH Units Ur Specific [place] 1.024 (1.010-1.025) Urine Protein Negative (Neg-Trace) mg/dL Urine Glucose (UA) Normal (Normal) mg/dL Urine Ketones Negative (Negative) mg/dL Urine Blood Negative (Negative) Urine Nitrite Negative (Negative) Urine Bilirubin Negative (Negative) Urine Urobilinogen Normal (Normal) mg/dL Ur Leukocyte Esterase Negative (Negative) Salicylates < 2.5 L (15.0-30.0) mg/dL Urine Opiates Screen (Volixn=321) ng/mL Ur Buprenorphine Scrn (Cutoff=5) ng/mL Acetaminophen < 10 L (10-20) mcg/mL Ur Barbiturates Screen (Pwjfqs=114) ng/mL Ur Phencyclidine Scrn (Cutoff=25) ng/mL Ur Amphetamines Screen (Rvbpta=4431) ng/mL U Benzodiazepines Scrn (Clvbbn=997) ng/mL Urine Cocaine Screen (Cutoff= 300) ng/mL U Marijuana (THC) Screen (Cutoff = 50) ng/mL Ur Drug Screen Interp Ethyl Alcohol < 10 (Less than 10) mg/dL 12/15/18 Range/Units 21:05 WBC (4.3-11.1) K/mcL RBC (4.19-5.50) M/mcL Hgb (12.9-16.9) g/dL Hct (37.5-50.1) % MCV (83.0-100.0) fL MCH (28.0-33.3) pg MCHC (31.6-35.5) g/dL RDW (11.5-14.5) % Plt Count (140-400) K/mcL MPV (9.4-12.4) fL Immature Gran % (0-4) % Seg Neutrophils % % Lymphocytes % % Monocytes % % Eosinophils % % Basophils % % Neutrophils # (1.6-8.9) K/mcL Lymphocytes # (0.6-4.6) K/mcL Monocytes # (0.0-1.3) K/mcL Eosinophils # (0.0-0.6) K/mcL Basophils # (0.0-0.2) K/mcL Sodium (136-145) mEq/L Potassium (3.5-5.1) mEq/L Chloride (98-107) mEq/L Carbon Dioxide (23-29) mEq/L BUN (6-20) mg/dL Creatinine (0.70-1.30) mg/dL Est GFR ( Amer) (> 60) Est GFR (Non-Af Amer) (> 60) BUN/Creatinine Ratio (6-26) Glucose (70-105) mg/dL Calculated Osmolality (280-300) Calcium (8.6-10.3) mg/dL Total Bilirubin (0.3-1.0) mg/dL Direct Bilirubin (0.0-0.2) mg/dL Indirect Bilirubin (0.0-1.2) mg/dL AST (13-39) Units/L ALT (7-52) Units/L Alkaline Phosphatase (34-104) Units/L Serum Total Protein (6.4-8.9) g/dL Albumin (3.5-5.7) g/dL Globulin (2.4-3.5) g/dL Albumin/Globulin Ratio (1.1-2.2) Urine Color (Yellow) Urine Clarity (Clear) Urine pH (5.0-8.0) pH Units Ur Specific [place] (1.010-1.025) Urine Protein (Neg-Trace) mg/dL Urine Glucose (UA) (Normal) mg/dL Urine Ketones (Negative) mg/dL Urine Blood (Negative) Urine Nitrite (Negative) Urine Bilirubin (Negative) Urine Urobilinogen (Normal) mg/dL Ur Leukocyte Esterase (Negative) Salicylates (15.0-30.0) mg/dL Urine Opiates Screen Negative (Fcttsb=408) ng/mL Ur Buprenorphine Scrn Negative (Cutoff=5) ng/mL Acetaminophen (10-20) mcg/mL Ur Barbiturates Screen Positive H (Wmjfnq=452) ng/mL Ur Phencyclidine Scrn Negative (Cutoff=25) ng/mL Ur Amphetamines Screen Negative (Ezmuvb=0908) ng/mL U Benzodiazepines Scrn Positive H (Ugcakq=583) ng/mL Urine Cocaine Screen Negative (Cutoff= 300) ng/mL U Marijuana (THC) Screen Negative (Cutoff = 50) ng/mL Ur Drug Screen Interp See Below Ethyl Alcohol (Less than 10) mg/dL
[2018-12-15] MEDS ORDERED: *HR* LORazepam 2 MG/ML VIAL IVP PRN (22:52)
--- NOTE | 2018-12-15 22:54 | Internal Med History&Physical ---
Date of Encounter: 12/15/18 Time of Encounter: 22:54 Internal Medicine - H&P: HPI Chief complaint: unresponsive Admitted From: Home Plans for Post Hospital Care: Home History of present illness: Finn Bennett is a 43 year old man with multiple psychiatric disorders and substance use disorder who has an indwelling morphine pump who is known to take phenibut recreationally as well presenting with an apparent overdose. This happened earlier this year. He was brought to the ER in a state of unresponsiveness, with sonorous respirations and breathing about 5 or 6 times a minute as per ER documentation. He was lethargic and unresponsive. He was given 1mg of naloxone and ammonia inhalant without effect. His initial x-ray showed low lung volumes. He was subsequently intubated for airway protection. UDS jossy wed benzos and barbiturates. Lab work and urinalysis were grossly unremarkable otherwise. His repeat chest x-ray after intubation showed right upper lobe atelectasis and diffuse lung opacities concerning for aspiration. He is admitted to ICU for further care. Vitals: Reviewed General: Well-developed white man sedated on mechanical ventilation. Skin: Warm and dry. HEENT: Moist mucous membranes. No conjunctivae pallor. Pinpoint and poorly reactive to light. Neck: No lymphadenopathy. No JVD. No carotid bruits. No palpable thyroid. Chest: Normal thoracic expansion. Coarse breath sounds in the right lung field. Heart: Normal S1 & S2; rhythmic. No rubs or murmurs. Abdomen: Non-distended, soft and non-tender to palpation. No peritoneal reaction. Extremities: No clubbing, cyanosis or edema. No calf tenderness. Normal distal pulses. Neurological: Sedated to RASS-4. Psych: Unable to assess. Assessment/Plan 1. Acute encephalopathy: Suspected secondary to medication intoxication/over dose (phenibut: an unregulated MIRZA analogue [employer] depressant that is illegal in [place] and [place], developed in the [place] in the 1960s and is frequently used recreationally). There is no antidote for this and management is typically symptomatic, outside of activated charcoal, gastric lavage and vomit induction based on the timing. Will keep him on mechanical ventilation with only minimal sedation if deemed necessary with hopes he can gradually awaken for weaning trials. Keep on fluid resuscitation. Check lytes. Monitor QTc. 2. Atelectasis: Suspect secondary to mucus plugging from the intubation procedure in which he seems to have suffered a large degree of aspiration. If it does not improve with mechanical ventilation, he may require bronchoscopy for direct visualization and suction. Will start empiric antibiotics now given concerns for aspiration pneumonitis developing into pneumonia. 3. Substance use disorder: The patient will need social services manager intervention once clinically stabilized. 4. Psych d/o NOS: Psych evaluation may be necessary once clinically stabilized. CCT 55 mins. Past Med Surg Social Fam HX - Past Medical History Medical history: TIA, other Additional medical history: depression,adhd,rsd,lumbarSTENOSIS. FAILED BACK SYNDROME. 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 CHRONIC LOW BACK PAIN. SLEEP APNEA. TIA Psychiatric history: anxiety, ADHD, depression - Past Surgical History Surgical History: orthopedic, other Additional surgical history: pain pump in back - Social History Smoking Status: Current every day smoker Smokeless Tobacco Status: No Alcohol use: none Drug use: none - Family History Father Hx Family Endocrine Disorder: Yes Internal Medicine - H&P: Meds clonazePAM [Klonopin] 1 mg PO DAILY 06/07/16 [History] Citalopram [CeleXA] 20 mg PO DAILY 05/15/18 [History] Dextroamphetamine/Amphetamine [Adderall 10 mg Tablet] 10 mg PO BID 05/15/18 [History] Imipramine HCl [Tofranil] 75 mg PO HS 05/15/18 [History] [place] Carbonate 300 mg PO TID 05/15/18 [History] Perphenazine 4 mg PO HS 05/15/18 [History] Pregabalin [Lyrica] 300 mg PO BID 05/15/18 [History] Morphine Sulfate/Pf [Morphine IntraThecdal Pump] 1 each IT AD 05/17/18 [History] Allergy/AdvReac Type Severity Reaction Status Date / Time Penicillins Allergy See Verified 05/05/18 13:22 Comments All Systems PM: A 10-system review of systems was performed and is negative for pertinent findings except as documented above in the HPI. - Constitutional Vitals: Temp Pulse Resp BP Pulse Ox 96.9 F L 56 8 104/64 98 12/15/18 20:31 12/15/18 20:31 12/15/18 20:31 12/15/18 20:31 12/15/18 20:31 Exam: . Internal Med - H&P Results - Labs CBC & Chem 7: 12/15/18 20:46 12/15/18 20:46 Labs: Short CBC 12/15/18 Range/Units 20:46 WBC 10.2 (4.3-11.1) K/mcL Hgb 16.4 (12.9-16.9) g/dL Hct 49.8 (37.5-50.1) % Plt Count 302 (140-400) K/mcL Neutrophils # 6.5 (1.6-8.9) K/mcL BMP 12/15/18 20:46 Sodium 141 Potassium 4.2 Chloride 111 H Carbon Dioxide 24 BUN 12 Creatinine 0.92 Glucose 98 Calcium 9.3 Liver Function 12/15/18 Range/Units 20:46 Total Bilirubin 0.4 (0.3-1.0) mg/dL Direct Bilirubin 0.1 (0.0-0.2) mg/dL AST 19 (13-39) Units/L ALT 17 (7-52) Units/L Alkaline Phosphatase 111 H (34-104) Units/L Albumin 4.7 (3.5-5.7) g/dL Urine 12/15/18 Range/Units 21:05 Urine Color Yellow (Yellow) Urine Clarity Clear (Clear) Urine pH 5.0 (5.0-8.0) pH Units Ur Specific [place] 1.024 (1.010-1.025) Urine Protein Negative (Neg-Trace) mg/dL Urine Glucose (UA) Normal (Normal) mg/dL - Impressions ITS Impressions Chest X-Ray 12/15/18 20:33 IMPRESSION: Limited low lung volume study without acute process. D/ / Catalina Karimi MD / Catalina Karimi MD Interpreting Provider: Catalina Karimi MD Chest X-Ray 12/15/18 21:55 IMPRESSION: Appropriate endotracheal tube positioning. Right upper lobe atelectasis has developed, presumably due to a mucus plug. Heterogeneous left lung opacities could also reflect areas of bronchovascular crowding, atelectasis or aspiration sequela. D/ / 12/15/2018 22:24:41 Corey Carlisle / francisca Interpreting Provider: Corey Carlisle - Time Spent With Patient Total time spent is greater than 50% in coordination of care (as documented) at patient's floor/unit and/or counseling patient:
[2018-12-15] MEDS ORDERED: *HR* Midazolam HCl 2 MG/2 ML VIAL IVP ONE (23:06)
[2018-12-15] MEDS ORDERED: *HR* Midazolam HCl 5 MG/5 ML VIAL IVP ONE (23:07)
[2018-12-16] MEDS ORDERED: 0.9 % Sodium Chloride 1,000 ML ONE (01:31)
[2018-12-16] MEDS ORDERED: 0.9 % Sodium Chloride 1,000 ML IVC ONE (01:31)
[2018-12-16] MEDS: Piperacillin/Tazobactam 3.375 GM in 0.9 % Sodium Chloride Mini Bag 100 ML IVPB SCH ×4 (01:33→23:08)
[2018-12-16] MEDS: Dexmedetomidine HCl 400 MCG/100 ML MLS IVC SCH ×2 (01:33→05:23)
[2018-12-16] MEDS: Ringers Solution, Lactated 1,000 ML IVC SCH ×2 (01:42→07:59)
[2018-12-16 05:17] LABS: ABG Base Excess -2 mEq/L (-2 to 3); ABG HCO3 24 mEq/L (21-27); ABG Oxygen Saturation 97 % (95-98); ABG PCO2 45 mmHg (35-45); ABG PH 7.34 pH Units (7.32-7.45); ABG PO2 93 mmHg (85-104); ABG TCO2 26 mEq/L (20-26); Blood Gas Modality PRVC; Blood Gas PEEP 5 cm H2O; Blood Gas VT 500 cc
[2018-12-16] MEDS: *HR* Heparin 5,000 UNIT/ML VIAL SQ SCH ×2 (05:26→18:23)
[2018-12-16 07:42] LABS: Basophils # 0.1 K/mcL (0.0-0.2); Basophils % 0.4 %; Eosinophils # 0.1 K/mcL (0.0-0.6); Eosinophils % 0.8 %; Hematocrit 45.2 % (37.5-50.1); Hemoglobin 14.9 g/dL (12.9-16.9); Immature Granulocytes % 0.5 % (0-4); Lymphocytes # 2.2 K/mcL (0.6-4.6); Mean Corpuscular Hemoglobin 29.3 pg (28.0-33.3); Mean Corpuscular Volume 88.8 fL (83.0-100.0); Mean Platelet Volume 10.9 fL (9.4-12.4); Monocytes # 1.1 K/mcL (0.0-1.3); Monocytes % 7.3 %; Neutrophils # 11.3 K/mcL (1.6-8.9); Platelet Count 256 K/mcL (140-400); Red Blood Count 5.09 M/mcL (4.19-5.50); Red Cell Distribution Width 14.6 % (11.5-14.5); White Blood Count 14.9 K/mcL (4.3-11.1)
[2018-12-16 08:01] LABS: Alanine Aminotransferase 13 Units/L (7-52); Albumin/Globulin Ratio 1.9 (1.1-2.2); Alkaline Phosphatase 107 Units/L (34-104); Aspartate Amino Transferase 14 Units/L (13-39); BUN/Creatinine Ratio 17 (6-26); Bilirubin,Direct 0.1 mg/dL (0.0-0.2); Bilirubin,Indirect 0.6 mg/dL (0.0-1.2); Bilirubin,Total 0.7 mg/dL (0.3-1.0); Blood Urea Nitrogen 14 mg/dL (6-20); Calcium 9.5 mg/dL (8.6-10.3); Carbon Dioxide 24 mEq/L (23-29); Chloride 110 mEq/L (98-107); Globulin 2.1 g/dL (2.4-3.5); Glucose 135 mg/dL (70-105); Magnesium 2.2 mg/dL (1.6-2.6); Osmolality,Calculated 295 (280-300); Phosphorous 3.3 mg/dL (2.7-4.5); Potassium 3.9 mEq/L (3.5-5.1); Sodium 141 mEq/L (136-145); Total Protein 6.1 g/dL (6.4-8.9); eGFR For African Americans > 60 (> 60); eGFR For Non-African Americans > 60 (> 60)
--- NOTE | 2018-12-16 08:11 | Pulmonology Consult Note ---
Date of Encounter: 12/16/18 Time of Encounter: 08:09 Assessment and Plan (1) Acute respiratory failure Current Visit: Yes Status: Acute Intubated in the setting of failure to protect the airway due to dense encephalopathy following a drug overdose. He is currently too sedated to consider extubation, however he had reportedly been quite agitated. When his mental status improves we will perform a quick breathing trial and plan on extubating later today depending on clinical course. Qualifiers: Respiratory failure complication: unspecified whether with hypoxia or hypercapnia Qualified Code(s): J96.00 - Acute respiratory failure, unspecified whether with hypoxia or hypercapnia (2) Encephalopathy Current Visit: Yes Status: Acute Thought to be toxic/metabolic in etiology and due to recreational overdose. We will minimize sedating medications as able. No evidence of infectious etiology at this time. (3) Drug overdose Current Visit: No Status: Resolved Reportedly, the patient had an accidental overdose related to both his prescribed medications and recreational drug use. We will need to obtain further history when the patient is clinically able, or if family members arrive and are able to provide history. Qualifiers: Encounter type: subsequent encounter Injury intent: undetermined intent Qualified Code(s): T50.904D - Poisoning by unspecified drugs, medicaments and biological substances, undetermined, subsequent encounter (4) Chronic pain Current Visit: Yes Status: Acute By history. He reportedly has a morphine pump. We will need to verify his home medical regimen and restart medications as appropriate. Comment: Continue ICU level care for now. Possible transfer out of the ICU later today if successfully extubated. Qualifiers: Chronic pain type: chronic pain syndrome Qualified Code(s): G89.4 - Chronic pain syndrome History of Present Illness Consult date: 12/16/18 Requesting physician: Jamaal Bhatt Reason for consult: other (Respiratory failure and drug overdose) Chief complaint: Respiratory failure History of present illness: Of note, the patient is currently intubated and sedated. Therefore he is unable to dyspneic in the history or review of systems. Information was obtained from the medical record and in discussion with hospital staff. Reportedly, the patient presented to the ER is an apparent overdose. He ultimately required intubation and was transferred to the ICU for ongoing care. Past Med Surg Social Fam HX - Past Medical History Medical history: TIA, other Additional medical history: depression,adhd,rsd,lumbarSTENOSIS. FAILED BACK SYNDROME. 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 CHRONIC LOW BACK PAIN. SLEEP APNEA. TIA Psychiatric history: anxiety, ADHD, depression - Past Surgical History Surgical History: orthopedic, other Additional surgical history: pain pump in back - Social History Smoking Status: Current every day smoker Smokeless Tobacco Status: No Alcohol use: none Drug use: none - Family History Father Hx Family Endocrine Disorder: Yes Medications and Allergies clonazePAM [Klonopin] 1 mg PO DAILY 06/07/16 [History] Citalopram [CeleXA] 20 mg PO DAILY 05/15/18 [History] Dextroamphetamine/Amphetamine [Adderall 10 mg Tablet] 10 mg PO BID 05/15/18 [History] Imipramine HCl [Tofranil] 75 mg PO HS 05/15/18 [History] [place] Carbonate 300 mg PO TID 05/15/18 [History] Perphenazine 4 mg PO HS 05/15/18 [History] Pregabalin [Lyrica] 300 mg PO BID 05/15/18 [History] Morphine Sulfate/Pf [Morphine IntraThecdal Pump] 1 each IT AD 05/17/18 [History] Allergy/AdvReac Type Severity Reaction Status Date / Time Penicillins Allergy See Verified 05/05/18 13:22 Comments ROS unobtainable: due to endotracheal tube, due to mental status Physical Examination Vital Signs: Vital Signs, Last 4 Hours Temp Pulse Resp BP Pulse Ox 12/16/18 08:00 45 14 99/70 96 12/16/18 07:48 45 12/16/18 07:00 97.7 F 45 14 102/70 96 12/16/18 06:00 50 14 94/71 96 12/16/18 05:00 52 14 95/68 97 12/16/18 04:29 55 General: Intubated and sedated Eyes: nonicteric ENT: Endotracheal tube in place Neck: supple, no lymphadenopathy Lungs: Coarse bilateral breath sounds Cardiovascular: regular rate and rhythm Gastrointestinal: Abdomen is soft, non-tender, non-distended Integumentary: normal Extremities: no cyanosis, no edema Musculoskeletal: no deformities Neuro: Sedated Psych: Sedated Ventilator Settings Ventilator Settings: Ventilator Settings, Last 8 Hours Ventilator Tidal Volume 500 Setting Ventilator Tidal Volume 500 Setting Ventilator Tidal Volume 500 Setting Ventilator Tidal Volume 500 Setting Ventilator Tidal Volume 500 Setting Ventilator Tidal Volume 500 Setting Ventilator Tidal Volume 500 Setting Ventilator Tidal Volume 500 Setting Ventilator Tidal Volume 500 Setting Ventilator Tidal Volume 500 Setting Ventilator Respiratory Rate 14 Setting Ventilator Respiratory Rate 14 Setting Ventilator Respiratory Rate 14 Setting Ventilator Respiratory Rate 14 Setting Ventilator Respiratory Rate 14 Setting Ventilator Respiratory Rate 14 Setting Ventilator Respiratory Rate 14 Setting Ventilator Respiratory Rate 14 Setting Ventilator Respiratory Rate 14 Setting Ventilator Respiratory Rate 14 Setting Actual Respiratory Rate 14 Actual Respiratory Rate 14 Actual Respiratory Rate 14 Actual Respiratory Rate 14 Actual Respiratory Rate 14 Actual Respiratory Rate 14 Actual Respiratory Rate 14 Actual Respiratory Rate 14 Actual Respiratory Rate 14 Positive End Expiratory 5 Pressure Positive End Expiratory 5 Pressure Positive End Expiratory 5 Pressure Positive End Expiratory 5 Pressure Positive End Expiratory 5 Pressure Positive End Expiratory 5 Pressure Positive End Expiratory 5 Pressure Positive End Expiratory 5 Pressure Positive End Expiratory 5 Pressure Positive End Expiratory 5 Pressure Peak Inspiratory Airway 25 Pressure Peak Inspiratory Airway 25 Pressure Peak Inspiratory Airway 23 Pressure Peak Inspiratory Airway 23 Pressure Peak Inspiratory Airway 23 Pressure Peak Inspiratory Airway 20 Pressure Peak Inspiratory Airway 20 Pressure Peak Inspiratory Airway 20 Pressure Peak Inspiratory Airway 20 Pressure Results - Laboratory Findings CBC and BMP: 12/16/18 05:58 12/16/18 05:58 ABG ABG pH 7.34 pH Units (7.32-7.45) 12/16/18 05:14 ABG pCO2 45 mmHg (35-45) 12/16/18 05:14 ABG pO2 93 mmHg (85-104) 12/16/18 05:14 ABG O2 Saturation 97 % (95-98) 12/16/18 05:14 Abnormal lab findings: Abnormal lab results WBC 14.9 K/mcL (4.3-11.1) H 12/16/18 05:58 RBC 5.60 M/mcL (4.19-5.50) H 12/15/18 20:46 RDW 14.6 % (11.5-14.5) H 12/16/18 05:58 Neutrophils # 11.3 K/mcL (1.6-8.9) H 12/16/18 05:58 Chloride 110 mEq/L (98-107) H 12/16/18 05:58 Glucose 135 mg/dL (70-105) H 12/16/18 05:58 POC Glucose 138 mg/dL (70-99) H 12/16/18 01:10 Alkaline Phosphatase 107 Units/L (34-104) H 12/16/18 05:58 Serum Total Protein 6.1 g/dL (6.4-8.9) L 12/16/18 05:58 Globulin 2.1 g/dL (2.4-3.5) L 12/16/18 05:58 Salicylates < 2.5 mg/dL (15.0-30.0) L 12/15/18 20:46 Acetaminophen < 10 mcg/mL (10-20) L 12/15/18 20:46 Ur Barbiturates Screen Positive ng/mL (Lahhux=783) H 12/15/18 21:05 U Benzodiazepines Scrn Positive ng/mL (Lsfytx=840) H 12/15/18 21:05 [place] < 0.1 mEq/L (0.6-1.2) L 12/15/18 20:46 - Microbiology Findings Microbiology Findings: Microbiology, Last 48 Hours 12/15/18 22:12 Blood Culture - Preliminary Peripheral Venipuncture Culture is incubating and being continuously monitored for growth. Final report to follow. 12/15/18 22:12 Blood Culture - Preliminary Peripheral Venipuncture Culture is incubating and being continuously mon itored for growth. Final report to follow. - Clinical Findings Intake & Output: Intake & Output 12/15/18 12/16/18 12/16/18 23:59 07:59 15:59 Intake Total 12.2 / 12.2 2322.8 / 2322.8 Output Total 750 / 750 Balance 12.2 / 12.2 1572.8 / 1572.8 Weight 111.629 kg Consult Discharge Plan - Plan Referrals: Mary Ho MD [Primary Care Provider] -
[2018-12-16] MEDS ORDERED: cloNIDine HCl 0.1 MG TABLET PO SCH (14:15)
[2018-12-16] MEDS: Lithium Carbonate 300 MG CAPSULE PO SCH ×2 (14:35→19:29)
[2018-12-16] MEDS ORDERED: clonazePAM 1 MG TABLET PO PRN (14:57)
[2018-12-16] MEDS: *HR* LORazepam 2 MG/ML VIAL IVP PRN ×2 (16:32→21:52)
[2018-12-16] MEDS: clonazePAM 1 MG TABLET PO SCH (19:29)
[2018-12-16] MEDS ORDERED: Pregabalin 75 MG CAPSULE PO SCH (21:00)
[2018-12-16] MEDS ORDERED: traZODone 50 MG TABLET PO SCH (21:00)
[2018-12-16] MEDS ORDERED: *HR* Promethazine 25 MG/ML VIAL ONE (21:50)
[2018-12-16] MEDS: *HR* Promethazine 25 MG/ML VIAL IVP PRN (21:58)
[2018-12-17] MEDS: *HR* Promethazine 25 MG/ML VIAL IVP PRN (04:23)
[2018-12-17] MEDS: *HR* LORazepam 2 MG/ML VIAL IVP PRN (04:23)
[2018-12-17] MEDS: *HR* Heparin 5,000 UNIT/ML VIAL SQ SCH ×2 (05:48→17:23)
--- NOTE | 2018-12-17 08:27 | Pulmonology Progress Note ---
Date of Encounter: 12/17/18 Time of Encounter: 08:25 Assessment and Plan (1) Acute respiratory failure Current Visit: Yes Status: Acute Intubated in the setting of failure to protect the airway due to dense encephalopathy following a drug overdose. He was successfully extubated on 12/16/2018 and remained stable from a respiratory standpoint. Qualifiers: Respiratory failure complication: unspecified whether with hypoxia or hypercapnia Qualified Code(s): J96.00 - Acute respiratory failure, unspecified whether with hypoxia or hypercapnia (2) Encephalopathy Current Visit: Yes Status: Acute Thought to be toxic/metabolic in etiology and due to recreational overdose. We will minimize sedating medications as able. No evidence of infectious etiology at this time. (3) Drug overdose Current Visit: No Status: Resolved Reportedly, the patient had an accidental overdose related to both his prescribed medications and recreational drug use. The patient reports he was recently discontinued on his home Klonopin, and he was utilizing Phenibut to supplement. He was displaying signs of benzodiazepine withdrawal, and we restarted his prior home Klonopin dose as well as when necessary IV Ativan. Qualifiers: Encounter type: subsequent encounter Injury intent: undetermined intent Qualified Code(s): T50.904D - Poisoning by unspecified drugs, medicaments and biological substances, undetermined, subsequent encounter (4) Chronic pain Current Visit: Yes Status: Acute By history. He reportedly has a morphine pump. Minimize respiratory depressants such as opioids as able. Comment: Okay to transfer out of the critical care setting. Qualifiers: Chronic pain type: chronic pain syndrome Qualified Code(s): G89.4 - Chronic pain syndrome Subjective Principal diagnosis: Respiratory failure, overdose Interval history: No acute overnight events. The patient had developed signs of benzodiazepine withdrawal following extubation on 12/16/2018. He is improved with restarting his Klonopin and when necessary Ativan. No shortness of breath or respiratory complaints at this time. Objective PUL Vital signs: Last Vital Signs Temp 99.2 F 12/17/18 07:25 Pulse 80 12/17/18 06:00 Resp 18 12/17/18 06:00 BP 103/59 12/17/18 06:00 Pulse Ox 97 12/17/18 06:00 General: no acute distress Eyes: nonicteric ENT: oropharynx moist Neck: supple, no lymphadenopathy Lungs: Clear to auscultation bilaterally Cardiovascular: regular rate and rhythm Gastrointestinal: normoactive bowel sounds, soft, non-tender, non-distended Integumentary: normal Extremities: no cyanosis, no edema Musculoskeletal: no deformities Neuro: normal mental status, non-focal exam Psych: mood appropriate, affect normal Results - Laboratory Findings CBC and BMP: 12/16/18 05:58 12/16/18 05:58 ABG ABG pH 7.34 pH Units (7.32-7.45) 12/16/18 05:14 ABG pCO2 45 mmHg (35-45) 12/16/18 05:14 ABG pO2 93 mmHg (85-104) 12/16/18 05:14 ABG O2 Saturation 97 % (95-98) 12/16/18 05:14 Abnormal lab findings: Abnormal lab results WBC 14.9 K/mcL (4.3-11.1) H 12/16/18 05:58 RBC 5.60 M/mcL (4.19-5.50) H 12/15/18 20:46 RDW 14.6 % (11.5-14.5) H 12/16/18 05:58 Neutrophils # 11.3 K/mcL (1.6-8.9) H 12/16/18 05:58 Chloride 110 mEq/L (98-107) H 12/16/18 05:58 Glucose 135 mg/dL (70-105) H 12/16/18 05:58 POC Glucose 114 mg/dL (70-99) H 12/16/18 11:56 Alkaline Phosphatase 107 Units/L (34-104) H 12/16/18 05:58 Serum Total Protein 6.1 g/dL (6.4-8.9) L 12/16/18 05:58 Globulin 2.1 g/dL (2.4-3.5) L 12/16/18 05:58 Salicylates < 2.5 mg/dL (15.0-30.0) L 12/15/18 20:46 Acetaminophen < 10 mcg/mL (10-20) L 12/15/18 20:46 Ur Barbiturates Screen Positive ng/mL (Rlhiho=998) H 12/15/18 21:05 U Benzodiazepines Scrn Positive ng/mL (Oznoxa=146) H 12/15/18 21:05 [place] < 0.1 mEq/L (0.6-1.2) L 12/15/18 20:46 - Microbiology Findings Microbiology Findings: Microbiology, Last 48 Hours 12/15/18 22:12 Blood Culture - Preliminary Peripheral Venipuncture Culture is incubating and being continuously monitored for growth. Final report to follow. 12/15/18 22:12 Blood Culture - Preliminary Peripheral Venipuncture Culture is incubating and being continuously monitored for growth. Final report to follow. - Clinical Findings Intake & Output: Intake & Output 12/16/18 12/17/18 12/17/18 23:59 07:59 15:59 Intake Total 100 / 3587.8 100 / 100 Output Total 750 / 0 850 / 850 Balance -650 / 1537.8 -750 / -750 Weight 102.8 kg Consult Discharge Plan - Plan Referrals: Mary Ho MD [Primary Care Provider] -
[2018-12-17] MEDS: Lithium Carbonate 300 MG CAPSULE PO SCH ×3 (08:48→20:00)
[2018-12-17] MEDS: clonazePAM 1 MG TABLET PO SCH ×2 (08:48→20:01)
[2018-12-17] MEDS: Piperacillin/Tazobactam 3.375 GM in 0.9 % Sodium Chloride Mini Bag 100 ML IVPB SCH ×2 (08:48→17:22)
[2018-12-17] MEDS ORDERED: *HR* LORazepam 2 MG/ML VIAL IVP PRN (09:24)
[2018-12-17] MEDS ORDERED: *HR* Promethazine 25 MG/ML VIAL IVP PRN (09:24)
[2018-12-17 10:05] LABS: Hematocrit 45.3 % (37.5-50.1); Hemoglobin 15.4 g/dL (12.9-16.9); Mean Corpuscular Hemoglobin 29.3 pg (28.0-33.3); Mean Corpuscular Volume 86.1 fL (83.0-100.0); Mean Platelet Volume 10.7 fL (9.4-12.4); Platelet Count 299 K/mcL (140-400); Red Blood Count 5.26 M/mcL (4.19-5.50); Red Cell Distribution Width 14.6 % (11.5-14.5); White Blood Count 12.9 K/mcL (4.3-11.1)
[2018-12-17 10:47] LABS: BUN/Creatinine Ratio 16 (6-26); Blood Urea Nitrogen 13 mg/dL (6-20); Calcium 9.5 mg/dL (8.6-10.3); Carbon Dioxide 24 mEq/L (23-29); Chloride 105 mEq/L (98-107); Glucose 103 mg/dL (70-105); Osmolality,Calculated 292 (280-300); Potassium 3.5 mEq/L (3.5-5.1); Sodium 141 mEq/L (136-145); eGFR For African Americans > 60 (> 60); eGFR For Non-African Americans > 60 (> 60)
[2018-12-18] MEDS: Piperacillin/Tazobactam 3.375 GM in 0.9 % Sodium Chloride Mini Bag 100 ML IVPB SCH ×2 (00:51→07:38)
[2018-12-18] MEDS: *HR* Heparin 5,000 UNIT/ML VIAL SQ SCH (06:15)
[2018-12-18 07:01] VITALS: BP 134/76
[2018-12-18] MEDS: clonazePAM 1 MG TABLET PO SCH (07:37)
[2018-12-18] MEDS: Lithium Carbonate 300 MG CAPSULE PO SCH (07:38)
--- NOTE | 2018-12-18 10:13 | Discharge Summary ---
- NOTES TO OUTPATIENT PROVIDER Notes to Outpatient Provider: Mr. Bennett is a 43M who was admitted for drug overdose. Patient was taking phenibut recreationally at home. UDS was positive for barbiturates and benzodiazepines. He was unresponsive in the ED to naloxone and ammonia inhalant and was intubated for 24 hours. Patient's explains that he was being tapered off Klonopin at home, as directed by his psychiatrist. After extubation, patient was stable. He was counseled to discontinue use of illicit drugs such as phenibut. He was also encouraged to continue taper off Klonopin as per his psychiatrist. We advise a follow-up psychiatric evaluation outpatient in one week. Orders not resulted at time of discharge: Pending orders 12/15/18 22:12 Culture,Blood [BC] Stat Date of Encounter: 12/18/18 Time of Encounter: 10:11 - Discharge Diagnosis (1) Acute encephalopathy Priority: Primary Status: Acute (2) Atelectasis Priority: Secondary Status: Acute (3) Substance use disorder Priority: Secondary Status: Chronic (4) Psychiatric disorder Priority: Secondary Status: Chronic Hospital course: Mr. Bennett is a 43 year old male who was admitted for drug overdose. PMH significant for substance use, psychiatric disorders and has an indwelling morphine pump. Patient was taking phenibut recreationally at home. UDS was positive for barbiturates and benzodiazepines. He was unresponsive in the ED, continued to be unresponsive despite administration of naloxone and ammonia inhalant and was subsequently intubated for 24 hours. Patient's explains that he was being tapered off Klonopin at home, as directed by his psychiatrist. CXR showed heterogenous left lung opacities possibly secondary to aspiration. Head CT was negative. Patient was empirically started on zosyn. After extubation, patient was stable. He was counseled to discontinue use of illicit drugs such as phenibut. He was also encouraged to continue taper off Klonopin as per his psychiatrist. He was discharged home. - Time Spent with Patient Total time spent providing and/or coordinating discharge services: - Discharge Medications Prescriptions: Continued Morphine Sulfate/Pf [Morphine IntraThecdal Pump] 1 each IT AD Citalopram [CeleXA] 20 mg PO DAILY clonazePAM [Clonazepam] 1 mg PO BID PRN PRN Reason: Anxiety cloNIDine HCl [CloNIDine HCl] 0.1 mg PO DAILY [place] Carbonate 300 mg PO TID Nortriptyline [Pamelor] 10 mg PO HS Prazosin [Minipress] 1 mg PO HS PRN PRN Reason: nightmares Pregabalin [Lyrica] 300 mg PO BID Sertraline [Zoloft] 100 mg PO DAILY Sildenafil Citrate [Revatio] 40 - 100 mg PO DAILY PRN PRN Reason: Erectile Dysfunction traZODone [TraZODone] 50 - 100 mg PO HS Home Medications: Citalopram [CeleXA] 20 mg PO DAILY 12/16/18 [History] [place] Carbonate 300 mg PO TID 12/16/18 [History] Morphine Sulfate/Pf [Morphine IntraThecdal Pump] 1 each IT AD 12/16/18 [History] Nortriptyline [Pamelor] 10 mg PO HS 12/16/18 [History] Prazosin [Minipress] 1 mg PO HS PRN 12/16/18 [History] Pregabalin [Lyrica] 300 mg PO BID 12/16/18 [History] Sertraline [Zoloft] 100 mg PO DAILY 12/16/18 [History] Sildenafil Citrate [Revatio] 40 - 100 mg PO DAILY PRN 12/16/18 [History] cloNIDine HCl [CloNIDine HCl] 0.1 mg PO DAILY 12/16/18 [History] clonazePAM [Clonazepam] 1 mg PO BID PRN 12/16/18 [History] traZODone [TraZODone] 50 - 100 mg PO HS 12/16/18 [History] Allergies/Adverse Reactions: Allergy/AdvReac Type Severity Reaction Status Date / Time Penicillins Allergy See Verified 05/05/18 13:22 Comments Date of admission: 12/15/18 22:46 Primary care physician: Mary Ho Discharging clinician: Carlos Rodriguez - Constitutional Vitals: Temp Pulse Resp BP Pulse Ox 97.6 F 72 16 134/76 95 12/18/18 06:59 12/18/18 06:59 12/18/18 06:59 12/18/18 06:59 12/18/18 06:59 Exam: General: Well-developed white man sedated on mechanical ventilation. Skin: Warm and dry. HEENT: Moist mucous membranes. No conjunctivae pallor. Pinpoint and poorly reactive to light. Neck: No lymphadenopathy. No JVD. No carotid bruits. No palpable thyroid. Chest: Normal thoracic expansion. Coarse breath sounds in the right lung field. Heart: Normal S1 & S2; rhythmic. No rubs or murmurs. Abdomen: Non-distended, soft and non-tender to palpation. No peritoneal reaction. Extremities: No clubbing, cyanosis or edema. No calf tenderness. Normal distal pulses. Neurological: Sedated to RASS-4. Psych: Unable to assess. - Patient Status Disposition: Home, Self-Care Condition: Good Functional capacity at discharge: independent ambulation Overall status at discharge: patient is back to baseline - Discharge Instructions Follow Up With: Monica Shoemaker DO [Resident] - 12/28/18 1:20 pm (Please follw up as schedule..) Dwight Dukes CNP [Advanced Practice Nurse] - 01/23/19 3:45 pm Additional Instructions: Please continue home medications as instructed. Please continue to taper Klonopin as instructed by your psychiatrist. Please avoid illicit drugs such as phenibut. Please follow up with your psychiatrist regarding your recent hospital stay in 5-7 days. Please follow up with PCP regarding your recent hospital stay. Please return to the emergency department if you experience fevers, chills, chest pain, shortness of breath, blood in stool or urine, or any other concerning or worsening symptoms. You are also scheduled to see your counselor Elo Lyons 12/27/18 at 2:00pm. - Diet and Activity Activity: resume usual activities as tolerated Diet: advance to your usual diet
[2018-12-18] MEDS ORDERED: *HR* Rocuronium Bromide 50 MG/5 ML VIAL IVC ONE (11:35)
--- NOTE | 2018-12-21 14:34 | Electrocardiograph Report ---
[place] [employer] [facility] Test Date: 2018-12-15 Pat Name: Finn Bennett Department: EXAM5 Room: 2A32 Gender: M [employer]: : [id number] Requested By: [id number] Order Number: [id number] Kathryn MD: Rodney Woods Measurements Intervals [place] Rate: 58 P: 30 KS: 169 QRS: 66 QRSD: 100 T: 56 QT: 414 QTc: 407 Interpretive Statements Sinus rhythm Electronically Signed On 12-21-2018 14:32:51 EDT by Rodney Woods
== END 2018-12-18 11:36 | disposition home or self-care (01) | DRG 812 ==
LOC: EMEROOARM 20:25 → SUATTDRO 22:46 → ICNU 22:46 → 2ANU 12-17 09:49
PROVIDERS: ADMIT Family Medicine; ATTEND Internal Medicine